=== PATIENT | female | born 1955 | race American Indian/Alaskan Native ===

== ENCOUNTER 2016-11-24 11:28 | Observation (INO) | payer OTHER ==
[2016-11-24 11:28] VITALS: BMI 23.8
--- NOTE | 2016-11-24 12:00 | C.PDOC ---
History Of Present Illness 60 year old female presents to the ED with a new onset of bilateral temporal headache that started this morning at 07:00. Patient states having occasional frontal headaches, but the current one is different than usual. Patient's headache is worse with palpation, and is associated with bilateral blurry vision , sinus congestion, rhinorrhea. Patient notes having a midsternal chest pain along with the headache this morning that has since resolved, SP cardiac cath on 2017. Patient is currently taking OTC medications for the cold symptoms for the past 10 days. She denies SOB, vision loss, vomit, chills, fever, nausea, or known sick contacts. NEW ONSET B/L TEMP STONE SINCE WAKENING THIS MORNING @ 0700. WORSE W PALPATION. PS GETS OCC STONE BUT USUALLY FRONTAL. CURRENT STONE DIFF THAN USUAL. +B/L BLURRY VISION BUT DENIES VISION LOSS. NO ASSOC FEVER. +SINUS KULWINDER, RHINORRHEA. +COLD SX X 10 DAYS TAKING OTC COLD RX. NO CP, SOB PS ALSO AWOKE W MIDSTERNAL CP THIS MORNING ASSOC W STONE. NOW RESOLVED. S/P CARDIAC CATH 2017 EXAM NAD NONTOXIC HEENT NO GROSS VISION DEF; NO SINUS TEND; +B/L TEMPORAL TEND NO SWELL, MASS. NO TMJ TEND, AROM WO DIFF. NO PHOTOPHOBIA. +NASAL KULWINDER CLEAR DC. LUNGS +BRONCHIAL SOUNDS NO W/R/R NO RETRACTION SPEAKING FULL SENTENCES NEURO INTACT REMAINDER NEG Time Seen by Provider: 11/24/16 11:45 Chief Complaint (Nursing): Cough, Cold, Congestion History Per: Patient History/Exam Limitations: no limitations Onset/Duration Of Symptoms: Sudden Onset (headache) Current Symptoms Are (Timing): Still Present Recent travel outside of the [place]: No Additional History Per: Patient Past Medical History Reviewed: Historical Data, Nursing Documentation, Vital Signs Vital Signs: Last Vital Signs Temp 98.1 F 11/25/16 07:55 Pulse 65 11/25/16 07:55 Resp 20 11/25/16 07:55 BP 139/66 11/25/16 07:55 Pulse Ox 100 11/25/16 10:06 - Medical History PMH: Arthritis, Hypercholesterolemia, Hypothyroidism, Rheumatoid Arthritis Denies: Chronic Kidney Disease Surgical History: Endoscopy - [facility] Procedures ANGIOPLASTY OF OTHER NON-CORONARY VESSEL(S) (04/29/14) ATHERECTOMY OF OTHER NON-CORONARY VESSEL(S) (04/29/14) CONTRAST ARTERIOGRAM-LEG (04/29/14) INSEJ [id number] PERIPHERAL NON-CORONARY VES STENT(S) (03/25/14) INSERTION OF TWO VASCULAR STENTS (03/25/14) PROCEDURE ON SINGLE VESSEL (04/29/14) Family History: States: Unknown Family Hx - Social History Hx Tobacco Use: Yes Hx Alcohol Use: No Hx Substance Use: No - Immunization History Hx Tetanus Toxoid Vaccination: No Hx Influenza Vaccination: Yes Hx Pneumococcal Vaccination: Yes Review Of Systems Constitutional: Negative for: Fever, Chills Eyes: Positive for: Other (bilateral blurry vision) Cardiovascular: Negative for: Chest Pain Respiratory: Negative for: Shortness of Breath Gastrointestinal: Negative for: Nausea, Vomiting Neurological: Positive for: Headache. Negative for: Weakness, Numbness Physical Exam - Physical Exam Appears: Non-toxic, No Acute Distress Skin: Normal Color, Warm, Dry Head: Normacephalic, Tenderness (Bilateral temporal tenderness, No mass), No Swelling, Other (No TMJ tenderness, Active range of motion without difficulty) Eye(s): bilateral: Normal Inspection, PERRL, EOMI, Other (No gross vision deficit, No photophobia) Nose: Discharge (clear), No Tenderness, Other (Congestion, No sinus tenderness) Oral Mucosa: Moist Teeth: Normal Dentition Gingiva: No Other (No TMJ tenderness) Throat: Normal, No Erythema, No Exudate Neck: Normal, Supple Cardiovascular: Rhythm Regular Respiratory: No Rales, No Rhonchi, No Wheezing, Other (Bronchial sounds, No retractions, Speaking in full sentences) Back: Normal Inspection Extremity: Normal ROM, No Pedal Edema, Capillary Refill (less than 2 seconds), No Deformity Neurological/Psych: Oriented x3, Normal Speech, Normal Cognition, Normal Motor, Normal Sensation Gait: Steady ED Course And Treatment - Laboratory Results Result Diagrams: 11/25/16 08:22 11/25/16 08:22 ECG: Interpreted By Me ECG Rhythm: Sinus Rhythm ECG Interpretation: Normal Rate From EC O2 Sat by Pulse Oximetry: 100 (On RA) Pulse Ox Interpretation: Normal - Radiology CXR: Interpreted by Me, Viewed By Me CXR Interpretation: Yes: No Acute Disease Nexus Criteria: Negative - CT Scan/US Head CT scan Other Rad Studies (CT/US): Interpreted By Me, Read By Radiologist, Radiology Report Reviewed CT/US Interpretation: PROCEDURE: CT HEAD WITHOUT CONTRAST. HISTORY: Headache. COMPARISON: None available. TECHNIQUE: Axial computed tomography images were obtained through the head/brain without intravenous contrast. Radiation dose: Total exam DLP = 831.14 mGy-cm. This CT exam was performed using one or more of the following dose reduction techniques: Automated exposure control, adjustment of the mA and/or kV according to patient size, and/ or use of iterative reconstruction technique. FINDINGS: HEMORRHAGE: No intracranial hemorrhage. BRAIN: No mass effect or edema. No atrophy or chronic microvascular ischemic changes. VENTRICLES: Unremarkable. No hydrocephalus. CALVARIUM: Unremarkable. PARANASAL SINUSES: Unremarkable as visualized. No significant inflammatory changes. MASTOID AIR CELLS: Unremarkable as visualized. No inflammatory changes. OTHER FINDINGS: None. IMPRESSION: No evidence of acute intracranial hemorrhage intracranial collection mass effect or midline shift Progress - Re-Evaluation Re-evaluation Note: 11/24/16 13:11 RESIDUAL STONE BUT IMPROVED FROM PRIOR. VSS NEURO INTACT. NO RECUR CP SINCE PRIOR EVAL - Data Reviewed Data Reviewed: Lab, Diagnostic imaging, EKG, Old records - Continuity of Care Discussed patient case with:: PMD Medical Decision Making Medical Decision Making: Impression : 60 y/p female with sudden onset of STONE since 04:00 this am. Plan: * CT head w/o contrast ordered * CXR ordered * EKG ordered * Blood work ordered * Reglan 10 mg IVP, Toradol 15 mg IVP, Tylenol 650 mg PO administere Disposition Counseled Patient/Family Regarding: Studies Performed, Diagnosis - Disposition Disposition: HOSPITALIZED Disposition Time: 13:15 Condition: STABLE - POA Present On Arrival: Poor Glycemic Control - Clinical Impression Clinical Impression: Chest pain, Headache, Bronchitis - Scribe Statement The provider has reviewed the documentation as recorded by the Scribe Filemon Jorge All medical record entries made by the Scribe were at my direction and personally dictated by me. I have reviewed the chart and agree that the record accurately reflects my personal performance of the history, physical exam, medical decision making, and the department course for this patient. I have also personally directed, reviewed, and agree with the discharge instructions and disposition. Decision To Admit - Pt Status Changed To: Hospital Disposition Of: Observation - . Bed Request Type: Telemetry Admitting Physician: Liz Sher Patient Diagnosis: Chest pain, Headache, Bronchitis
[2016-11-24 12:17] LABS: BASO # 0.1 K/uL (0.0-0.2); BASO % 1.1 % (0.0-2.0); EOS # 0.1 K/uL (0.0-0.7); EOS % 0.6 % (0.0-4.0); HEMATOCRIT 44.1 % (34.0-47.0); LYMPH # 3.2 K/uL (1.0-4.3); LYMPH % 32.7 % (20.0-40.0); MEAN CELL VOLUME 91.3 fL (81.0-99.0); MEAN CORPUSCULAR HEMOGLOBIN 30.7 pg (27.0-31.0); MEAN CORPUSCULAR HGB CONC 33.6 g/dL (33.0-37.0); MEAN PLATELET VOLUME 8.7 fL (7.2-11.7); MONO # 0.7 K/uL (0.0-0.8); MONO % 7.4 % (0.0-10.0); RED CELL DISTRIBUTION WIDTH 15.1 % (11.5-14.5); WHITE BLOOD COUNT 9.8 K/uL (4.8-10.8)
[2016-11-24 12:27] LABS: CHLORIDE 102 mmol/L (98-107); SODIUM 138 mmol/L (132-148)
[2016-11-24 12:30] LABS: GFR AFRICAN-AMERICAN > 60
[2016-11-24 12:31] LABS: BLOOD UREA NITROGEN 13 mg/dL (7-17); CALCIUM 9.9 mg/dl (8.6-10.4); CARBON DIOXIDE 27 mmol/L (22-30); GLUCOSE,RANDOM 121 mg/dL (65-105)
--- NOTE | 2016-11-24 13:00 | CT ---
PROCEDURE: CT HEAD WITHOUT CONTRAST. HISTORY: Headache COMPARISON: None available. TECHNIQUE: Axial computed tomography images were obtained through the head/brain without intravenous contrast. Radiation dose: Total exam DLP = 831.14 mGy-cm. This CT exam was performed using one or more of the following dose reduction techniques: Automated exposure control, adjustment of the mA and/or kV according to patient size, and/or use of iterative reconstruction technique. FINDINGS: HEMORRHAGE: No intracranial hemorrhage. BRAIN: No mass effect or edema. No atrophy or chronic microvascular ischemic changes. VENTRICLES: Unremarkable. No hydrocephalus. CALVARIUM: Unremarkable. PARANASAL SINUSES: Unremarkable as visualized. No significant inflammatory changes. MASTOID AIR CELLS: Unremarkable as visualized. No inflammatory changes. OTHER FINDINGS: None. IMPRESSION: No evidence of acute intracranial hemorrhage intracranial collection mass effect or midline shift.
[2016-11-24 13:58] LABS: ALKALINE PHOSPHATASE 122 U/L (38-126); ALT/SGPT 23 U/L (9-52); AST/SGOT 31 U/L (14-36); BILIRUBIN,DIRECT 0.4 mg/dL (0.0-0.4); BILIRUBIN,TOTAL 0.5 mg/dL (0.2-1.3); TOTAL PROTEIN 8.9 g/dL (6.3-8.3)
--- NOTE | 2016-11-24 14:11 | CP.PCM.HP ---
<Zafar Nevarez - Last Filed: 11/24/16 18:13> History of Present Illness - History of Present Illness History of Present Illness: Patient is a 60 year old female with PMHx of rheumatoid arthritis, hypercholesterolemia, hypothyroidism, who presents to [facility] for headache and chest pain. Patient states the headache began at 7 AM when she woke up. She describes the pain as bilateral temporal pain that does not radiate. She states she has had the pain intermittently for the past week. She admits she has recently had new dentures made, and has noticed the pain since then. She denies pain with chewing. She describes a few minutes after she woke up this morning and sat upright she began to experience a dull, aching pain in her midsternal chest. She reports the pain lasted for thirty minutes, went away , and then came back again. She denies radiation. She denies the chest pain being associated with dyspnea, diaphoresis, nausea, or exertion. The pain is not affected by respiration or position, but admits pain on direct pressure to chest wall. She rates the pain as 8/10 on the severity scale at worst, but the pain has resolved now. Patient admits recent cold symptoms of productive cough with clear phlegm, sinus congestion, and rhinorrhea for the past week. She denies recent strenuous activity. She denies palpitations, shortness of breath, dizziness, abdominal pain, nausea, vomiting, diaphoresis, fever, fatigue, or chills. She denies sick contacts or recent travels. PMHx: Type two diabetes mellitus, Hypercholesterolemia, Rheumatoid Arthritis, hypothyroidism PSHx: SFA artherectomy (04/27) Vascular stents in right leg (03/28), stents in left leg (02/25), Thyroid lobectomy 02/2004, Fam Hx: Father - [place], Triple vessel disease; Mother - Type two diabetes, Cervical Cancer SHx: Tobacco ~1/2 ppd currently; 1.5 packs x 20 years; Living: Social EtOH, Lives in [place]; Disabled - post-office, home health aide Present on Admission - Present on Admission Any Indicators Present on Admission: No Review of Systems - Constitutional Constitutional: absent: Chills, Fever - EENT Eyes: absent: Blurred Vision - Cardiovascular Cardiovascular: Chest Pain. absent: Dyspnea, Pedal Edema - Respiratory Respiratory: Cough (clear phlegm) - Gastrointestinal Gastrointestinal: absent: Abdominal Pain, Bloating, Nausea, Vomiting - Genitourinary Genitourinary: absent: Difficulty Urinating - Musculoskeletal Musculoskeletal: absent: Back Pain, Numbness, Tingling - Integumentary Integumentary: absent: Dry Skin, Wounds - Neurological Neurological: absent: Tingling, Weakness - Psychiatric Psychiatric: absent: Anxiety, Depression - Endocrine Endocrine: absent: Fatigue, Palpitations Past Patient History - Infectious Disease Hx of Infectious Diseases: None - Past Medical History & Family History Past Medical History?: Yes - Past Social History Smoking Status: Light Smoker < 10 Cigarettes Daily - CARDIAC Hx Hypercholesterolemia: Yes - PULMONARY Hx Respiratory Disorders: No - NEUROLOGICAL Hx Neurological Disorder: No - HEENT Hx HEENT Problems: Yes (wears glasses) - RENAL Hx Chronic Kidney Disease: No - ENDOCRINE/METABOLIC Hx Hypothyroidism: Yes - HEMATOLOGICAL/ONCOLOGICAL Hx Blood Disorders: No - INTEGUMENTARY Hx Dermatological Problems: No - MUSCULOSKELETAL/RHEUMATOLOGICAL Hx Arthritis: Yes Hx Rheumatoid Arthritis: Yes - GASTROINTESTINAL Hx Gastrointestinal Disorders: No - GENITOURINARY/GYNECOLOGICAL Hx Genitourinary Disorders: No - PSYCHIATRIC Hx Substance Use: No - SURGICAL HISTORY Hx Surgeries: Yes Hx Angiogram: Yes Hx Orthopedic Surgery: Yes (BILAT BUNIONECTOMY) Other/Comment: thyroid sx,. stents to rt leg - ANESTHESIA Hx Anesthesia: Yes Hx Anesthesia Reactions: No Hx Malignant Hyperthermia: No Meds Allergies/Adverse Reactions: Allergies Allergy/AdvReac Type Severity Reaction Status Date / Time No Known Allergies Allergy Verified 11/24/16 11:34 Physical Exam - Constitutional Appears: Non-toxic, No Acute Distress - Head Exam Head Exam: ATRAUMATIC, NORMOCEPHALIC - Eye Exam Eye Exam: EOMI. absent: Scleral icterus - ENT Exam ENT Exam: Mucous Membranes Moist Additional comments: Positive pressure in sinuses with palpation - Respiratory Exam Respiratory Exam: Clear to Auscultation Bilateral, NORMAL BREATHING PATTERN. absent: Rales, Rhonchi, Wheezes - Cardiovascular Exam Cardiovascular Exam: REGULAR RHYTHM, +S1, +S2 - GI/Abdominal Exam GI & Abdominal Exam: Normal Bowel Sounds, Soft. absent: Tenderness - Extremities Exam Extremities exam: Positive for: normal inspection. Negative for: pedal edema, tenderness - Back Exam Back exam: absent: CVA tenderness (L), CVA tenderness (R) - Neurological Exam Neurological exam: Alert, CN II-XII Intact, Oriented x3 - Psychiatric Exam Psychiatric exam: Normal Affect - Skin Skin Exam: Dry, Normal Color, Warm Results - Vital Signs Recent Vital Signs: Last Vital Signs Temp 97.9 F 11/24/16 13:20 Pulse 57 L 11/24/16 13:20 Resp 20 11/24/16 13:20 BP 173/78 H 11/24/16 13:20 Pulse Ox 100 11/24/16 13:32 - Labs Result Diagrams: 11/24/16 12:10 11/24/16 12:10 Labs: Laboratory Results - last 24 hr 11/24/16 11/24/16 11/24/16 11:50 12:10 12:10 WBC 9.8 RBC 4.83 Hgb 14.8 Hct 44.1 MCV 91.3 MCH 30.7 MCHC 33.6 RDW 15.1 H Plt Count 339 MPV 8.7 Neut % (Auto) 58.2 Lymph % (Auto) 32.7 [place] % (Auto) 7.4 Eos % (Auto) 0.6 Baso % (Auto) 1.1 Neut # 5.7 Lymph # 3.2 [place] # 0.7 Eos # 0.1 Baso # 0.1 Sodium 138 Potassium 4.0 Chloride 102 Carbon Dioxide 27 Anion Gap 13 BUN 13 Creatinine 0.8 Est GFR ( Amer) > 60 Est GFR (Non-Af Amer) > 60 POC Glucose (mg/dL) 160 H Random Glucose 121 H Calcium 9.9 Total Bilirubin 0.5 Direct Bilirubin 0.4 AST 31 ALT 23 Alkaline Phosphatase 122 Troponin I < 0.0120 Total Protein 8.9 H Albumin 4.5 Globulin 4.5 H Albumin/Globulin Ratio 1.0 Influenza Typ A,B (EIA) Grp A Beta Strep Ag 11/24/16 11/24/16 13:17 13:54 WBC RBC Hgb Hct MCV MCH MCHC RDW Plt Count MPV Neut % (Auto) Lymph % (Auto) [place] % (Auto) Eos % (Auto) Baso % (Auto) Neut # Lymph # [place] # Eos # Baso # Sodium Potassium Chloride Carbon Dioxide Anion Gap BUN Creatinine Est GFR ( Amer) Est GFR (Non-Af Amer) POC Glucose (mg/dL) Random Glucose Calcium Total Bilirubin Direct Bilirubin AST ALT Alkaline Phosphatase Troponin I Total Protein Albumin Globulin Albumin/Globulin Ratio Influenza Typ A,B (EIA) Negative for flu a/b Grp A Beta Strep Ag Negative Assessment & Plan - Assessment and Plan (Free Text) Plan: Chest pain - R/O ACS Admit to tele/obs EKG: NSR, no acute ST-T wave changes MIGUEL panel x 3: negative x 1, f/u 2 additional BNP: 13.2 D-dimer: <200 Cardio consult: Dr. Johnson - f/u reccs - f/u ECHO Headache Bilateral pressure CT Head (11/24/16): No evidence of intracranial hemorrhage, mass effect, or midline shift. Tylenol 650mg PO Q6H PRN Bronchitis USP smoking history - productive clear phlegm CXR (11/24/16): No evidence of pulm disease or interval change f/u Mycoplasma, Strep, Legionella Flonase Daily Promethazine with codeine 5ml PO Q4H PRN cough Mucinex 600mg PO BID Azithromycin 500mg IV Daily (day one) HTN Elevated pressures on admission Pt admits poor compliance Losartan 25mg PO Q24H Chlorthalidone 25mg PO Daily Type Two DM Recent A1C 6.8 f/u A1c Pt refusing medication as outpatient SINDY PVD Hx of multiple revascularizations with Dr. Johnson Plavix 75mg PO Daily Prophylaxis SCDs Heparin 5000u Q8H Protonix 40mg PO Daily Zafar Nevarez PGY-2 <Liz Sher V - Last Filed: 11/24/16 21:56> Results - Vital Signs Recent Vital Signs: Last Vital Signs Temp 98.2 F 11/24/16 17:23 Pulse 61 11/24/16 17:52 Resp 20 11/24/16 17:23 BP 173/83 H 11/24/16 17:23 Pulse Ox 98 11/24/16 17:23 - Labs Result Diagrams: 11/24/16 12:10 11/24/16 12:10 Labs: Laboratory Results - last 24 hr 11/24/16 11/24/16 11/24/16 11:50 12:10 12:10 WBC 9.8 RBC 4.83 Hgb 14.8 Hct 44.1 MCV 91.3 MCH 30.7 MCHC 33.6 RDW 15.1 H Plt Count 339 MPV 8.7 Neut % (Auto) 58.2 Lymph % (Auto) 32.7 [place] % (Auto) 7.4 Eos % (Auto) 0.6 Baso % (Auto) 1.1 Neut # 5.7 Lymph # 3.2 [place] # 0.7 Eos # 0.1 Baso # 0.1 D-Dimer, Quantitative Sodium 138 Potassium 4.0 Chloride 102 Carbon Dioxide 27 Anion Gap 13 BUN 13 Creatinine 0.8 Est GFR ( Amer) > 60 Est GFR (Non-Af Amer) > 60 POC Glucose (mg/dL) 160 H Random Glucose 121 H Calcium 9.9 Total Bilirubin 0.5 Direct Bilirubin 0.4 AST 31 ALT 23 Alkaline Phosphatase 122 Total Creatine Kinase CK-MB (Mass) Troponin I < 0.0120 Troponin I, Quant NT-Pro-B Natriuret Pep 13.2 Total Protein 8.9 H Albumin 4.5 Globulin 4.5 H Albumin/Globulin Ratio 1.0 Influenza Typ A,B (EIA) Grp A Beta Strep Ag 11/24/16 11/24/16 11/24/16 13:17 13:54 14:06 WBC RBC Hgb Hct MCV MCH MCHC RDW Plt Count MPV Neut % (Auto) Lymph % (Auto) [place] % (Auto) Eos % (Auto) Baso % (Auto) Neut # Lymph # [place] # Eos # Baso # D-Dimer, Quantitative < 200 Sodium Potassium Chloride Carbon Dioxide Anion Gap BUN Creatinine Est GFR ( Amer) Est GFR (Non-Af Amer) POC Glucose (mg/dL) Random Glucose Calcium Total Bilirubin Direct Bilirubin AST ALT Alkaline Phosphatase Total Creatine Kinase CK-MB (Mass) Troponin I Troponin I, Quant NT-Pro-B Natriuret Pep Total Protein Albumin Globulin Albumin/Globulin Ratio Influenza Typ A,B (EIA) Negative for flu a/b Grp A Beta Strep Ag Negative 11/24/16 11/24/16 16:34 20:04 WBC RBC Hgb Hct MCV MCH MCHC RDW Plt Count MPV Neut % (Auto) Lymph % (Auto) [place] % (Auto) Eos % (Auto) Baso % (Auto) Neut # Lymph # [place] # Eos # Baso # D-Dimer, Quantitative Sodium Potassium Chloride Carbon Dioxide Anion Gap BUN Creatinine Est GFR ( Amer) Est GFR (Non-Af Amer) POC Glucose (mg/dL) 124 H Random Glucose Calcium Total Bilirubin Direct Bilirubin AST ALT Alkaline Phosphatase Total Creatine Kinase 179 H CK-MB (Mass) 0.68 Troponin I Troponin I, Quant < 0.0120 NT-Pro-B Natriuret Pep Total Protein Albumin Globulin Albumin/Globulin Ratio Influenza Typ A,B (EIA) Grp A Beta Strep Ag Attending/Attestation - Attestation I have personally seen and examined this patient.: Yes I have fully participated in the care of the patient.: Yes I have reviewed all pertinent clinical information: Yes
--- NOTE | 2016-11-24 14:49 | RAD ---
HISTORY: CP COMPARISON: Comparison is made to 03/14/2016 TECHNIQUE: Chest PA and lateral FINDINGS: LUNGS: No evidence of new infiltrate or consolidation in the lungs. PLEURA: No significant pleural effusion identified. No pneumothorax apparent. CARDIOVASCULAR: Normal. OSSEOUS STRUCTURES: No significant abnormalities. VISUALIZED UPPER ABDOMEN: Normal. OTHER FINDINGS: None. IMPRESSION: No evidence of a pulmonary disease or significant interval change.
[2016-11-24] MEDS: (Novolin R) Insulin Human Regular 100 units/ml vial SC SCH ×2 (16:35→21:36)
[2016-11-24 17:24] VITALS: RESP 20
[2016-11-24] MEDS ORDERED: Promethazine/Cod 6.25mg-10mg/5ml Syr UD PO PRN (18:21)
[2016-11-24] MEDS: guaiFENesin 600 mg ER Tab PO SCH (21:36)
--- NOTE | 2016-11-25 06:53 | CP.PCM.PN ---
Subjective - Date & Time of Evaluation Date of Evaluation: 11/25/16 Time of Evaluation: 06:51 - Subjective Subjective: PGY-[address] Sher's Service: Pt seen and examined at bedside. Nursing reports no acute events overnight. Patient found eating in bed in no acute distress. Patient admits only taking her thyroid, cholesterol, and blood pressure medication "a few times a week." Patient admits being told "she has elevated blood sugar" in the past. Patient was informed lab work shows pt has diabetes. With attending, patient was given education regarding effects of penitentiary diabetes can have on body. Patient also educated on importance of taking thyroid medication daily, and about quitting smoking. Patient was receptive and states "she will take her medications daily now." Pt denies reoccurrence of chest pain or headache since admission. Objective - Vital Signs/Intake and Output Vital Signs (last 24 hours): Temp Pulse Resp BP Pulse Ox 98.5 F 62 20 142/62 96 11/25/16 04:08 11/25/16 04:08 11/25/16 04:08 11/25/16 04:08 11/25/16 04:08 - Medications Medications: Current Medications Acetaminophen (Tylenol 325mg Tab) 650 mg PO Q6 PRN PRN Reason: Headache Chlorthalidone (Hygroton) 25 mg PO DAILY [facility] Clopidogrel Bisulfate (Plavix) 75 mg PO DAILY [facility] Fluticasone Propionate (Flonase) 1 spr FRANK BID [facility] Guaifenesin (Mucinex [place]) 600 mg PO BID [facility] Last Admin: 11/24/16 21:36 Dose: 600 mg Heparin Sodium (Porcine) (Heparin) 5,000 units SC Q12 [facility] Last Admin: 11/24/16 21:35 Dose: 5,000 units Hydralazine HCl (Apresoline) 10 mg IVP Q6H PRN PRN Reason: Systolic Blood Pressure >160 Azithromycin 500 mg/ Sodium (Chloride) 250 mls @ 250 mls/hr IVPB DAILY [facility] Insulin Human Regular (Novolin R) 0 unit SC ACHS [facility] PRN Reason: Protocol Last Admin: 11/24/16 21:36 Dose: Not Given Levothyroxine Sodium (Synthroid) 125 mcg PO DAILY [facility] Losartan Potassium (Cozaar) 25 mg PO Q24H [facility] Last Admin: 11/24/16 21:00 Dose: 25 mg Promethazine HCl/Codeine (Phenergan/Codeine Oral Syrup) 5 ml PO Q4 PRN PRN Reason: Cough Rosuvastatin Calcium (Crestor) 10 mg PO HS [facility] Last Admin: 11/24/16 21:35 Dose: 10 mg Saccharomyces Boulardii (Florastor) 250 mg PO BID ZOLTAN - Labs Labs: 11/24/16 12:10 11/24/16 12:10 - Constitutional Appears: Non-toxic, No Acute Distress - Head Exam Head Exam: ATRAUMATIC, NORMOCEPHALIC - Eye Exam Eye Exam: EOMI. absent: Scleral icterus - ENT Exam ENT Exam: Mucous Membranes Moist - Neck Exam Neck Exam: Full ROM - Respiratory Exam Respiratory Exam: Clear to Ausculation Bilateral, NORMAL BREATHING PATTERN. absent: Rales, Rhonchi, Wheezes - Cardiovascular Exam Cardiovascular Exam: REGULAR RHYTHM, +S1, +S2 - GI/Abdominal Exam GI & Abdominal Exam: Soft, Normal Bowel Sounds. absent: Tenderness - Extremities Exam Extremities Exam: Normal Inspection. absent: Pedal Edema, Tenderness - Neurological Exam Neurological Exam: Alert, Awake, Oriented x3 - Psychiatric Exam Psychiatric exam: Normal Affect - Skin Skin Exam: Normal Color, Warm - Additional Findings Additional findings: - Constitutional Appears: Non-toxic, No Acute Distress - Head Exam Head Exam: ATRAUMATIC, NORMOCEPHALIC - Eye Exam Eye Exam: EOMI. absent: Scleral icterus - ENT Exam ENT Exam: Mucous Membranes Moist Additional comments: Positive pressure in sinuses with palpation - Respiratory Exam Respiratory Exam: Clear to Auscultation Bilateral, NORMAL BREATHING PATTERN. absent: Rales, Rhonchi, Wheezes - Cardiovascular Exam Cardiovascular Exam: REGULAR RHYTHM, +S1, +S2 - GI/Abdominal Exam GI & Abdominal Exam: Normal Bowel Sounds, Soft. absent: Tenderness - Extremities Exam Extremities exam: Positive for: normal inspection. Negative for: pedal edema, tenderness - Back Exam Back exam: absent: CVA tenderness (L), CVA tenderness (R) - Neurological Exam Neurological exam: Alert, CN II-XII Intact, Oriented x3 - Psychiatric Exam Psychiatric exam: Normal Affect - Skin Skin Exam: Dry, Normal Color, Warm Assessment and Plan - Assessment and Plan (Free Text) Plan: Chest pain - R/O ACS Admit to tele/obs EKG: NSR, no acute ST-T wave changes MIGUEL panel: negative x 3 BNP: 13.2 D-dimer: <200 Cardio consult: Dr. Johnson - no further cardiac workup - pt to follow as outpatient Headache Resolved Bilateral pressure CT Head (11/24/16): No evidence of intracranial hemorrhage, mass effect, or midline shift. Tylenol 650mg PO Q6H PRN Bronchitis residential smoking history - productive clear phlegm CXR (11/24/16): No evidence of pulm disease or interval change f/u Mycoplasma, Strep, Legionella Flonase Daily Promethazine with codeine 5ml PO Q4H PRN cough Mucinex 600mg PO BID Azithromycin 500mg IV Daily (day one) HTN Elevated pressures on admission Pt admits poor compliance Losartan 25mg PO Q24H Chlorthalidone 25mg PO Daily Type Two DM Recent A1C 6.8 f/u A1c Pt refusing medication as outpatient SINDY PVD Hx of multiple revascularizations with Dr. Johnson Plavix 75mg PO Daily Prophylaxis SCDs Heparin 5000u Q8H Protonix 40mg PO Daily Disposition: Pt for discharge. Pt given education regarding smoking cessation, medication compliance. Zafar Nevarez PGY-2
[2016-11-25 08:18] VITALS: BP 139/66; TEMP 98.1
[2016-11-25] MEDS: (Novolin R) Insulin Human Regular 100 units/ml vial SC SCH ×2 (08:30→12:43)
[2016-11-25 08:58] LABS: BASO # 0.1 K/uL (0.0-0.2); BASO % 1.1 % (0.0-2.0); EOS # 0.1 K/uL (0.0-0.7); EOS % 2.2 % (0.0-4.0); HEMATOCRIT 40.5 % (34.0-47.0); LYMPH % 49.5 % (20.0-40.0); MEAN CELL VOLUME 91.4 fL (81.0-99.0); MEAN CORPUSCULAR HEMOGLOBIN 30.2 pg (27.0-31.0); MEAN CORPUSCULAR HGB CONC 33.1 g/dL (33.0-37.0); MONO # 0.4 K/uL (0.0-0.8); MONO % 6.9 % (0.0-10.0); NRBC % 0.1 % (0.0-2.0); RED CELL DISTRIBUTION WIDTH 14.8 % (11.5-14.5)
[2016-11-25 09:13] LABS: CHLORIDE 105 mmol/L (98-107); POTASSIUM 4.2 mmol/L (3.6-5.2); SODIUM 137 mmol/L (132-148)
[2016-11-25 09:15] LABS: BILIRUBIN,TOTAL 0.4 mg/dL (0.2-1.3); CARBON DIOXIDE 23 mmol/L (22-30); CHOLESTEROL 213 mg/dL (0-199); GFR AFRICAN-AMERICAN > 60
[2016-11-25 09:16] LABS: ALKALINE PHOSPHATASE 111 U/L (38-126); ALT/SGPT 25 U/L (9-52); AST/SGOT 23 U/L (14-36); BLOOD UREA NITROGEN 17 mg/dL (7-17); CALCIUM 9.2 mg/dl (8.6-10.4); GLUCOSE,RANDOM 106 mg/dL (65-105); MAGNESIUM 1.8 mg/dL (1.6-2.3); PHOSPHOROUS 3.6 mg/dL (2.5-4.5); TOTAL PROTEIN 7.6 g/dL (6.3-8.3)
[2016-11-25] MEDS ORDERED: Saccharomyces Boulardi 250 mg Cap PO SCH (10:00)
[2016-11-25] MEDS ORDERED: Azithromycin 500 MG in Sodium Chloride 0.9% 250 ML IVPB SCH (10:00)
[2016-11-25] MEDS ORDERED: Fluticasone Nasal 50 mcg/Spray NAS SCH ×2 (10:00)
[2016-11-25] MEDS ORDERED: Levothyroxine 125 MCG TAB PO SCH (10:00)
[2016-11-25 10:06] VITALS: O2SAT 100
[2016-11-25] MEDS: guaiFENesin 600 mg ER Tab PO SCH (10:27)
--- NOTE | 2016-11-25 12:01 | CP.PCM.CON ---
History of Present Illness - History of Present Illness History of Present Illness: Patient seen/examined. Patient has a history of HTN, PAD, smoking who presents with cough, chest congestion and chest pain. Currently on antibiotics. Cardiac enzymes are negative, and EKG is without evidence of myocardial ischemia. No further cardiac workup necessary. Recommend statin therapy for hypercholesterolemia Past Patient History - Infectious Disease Hx of Infectious Diseases: None - Past Medical History & Family History Past Medical History?: Yes - Past Social History Smoking Status: Light Smoker < 10 Cigarettes Daily - CARDIAC Hx Hypercholesterolemia: Yes - PULMONARY Hx Respiratory Disorders: No - NEUROLOGICAL Hx Neurological Disorder: No - HEENT Hx HEENT Problems: Yes (wears glasses) - RENAL Hx Chronic Kidney Disease: No - ENDOCRINE/METABOLIC Hx Hypothyroidism: Yes - HEMATOLOGICAL/ONCOLOGICAL Hx Blood Disorders: No - INTEGUMENTARY Hx Dermatological Problems: No - MUSCULOSKELETAL/RHEUMATOLOGICAL Hx Arthritis: Yes Hx Rheumatoid Arthritis: Yes - GASTROINTESTINAL Hx Gastrointestinal Disorders: No - GENITOURINARY/GYNECOLOGICAL Hx Genitourinary Disorders: No - PSYCHIATRIC Hx Substance Use: No - SURGICAL HISTORY Hx Surgeries: Yes Hx Angiogram: Yes Hx Orthopedic Surgery: Yes (BILAT BUNIONECTOMY) Other/Comment: thyroid sx,. stents to rt leg - ANESTHESIA Hx Anesthesia: Yes Hx Anesthesia Reactions: No Hx Malignant Hyperthermia: No Meds Allergies/Adverse Reactions: Allergies Allergy/AdvReac Type Severity Reaction Status Date / Time No Known Allergies Allergy Verified 11/24/16 11:34 - Medications Medications: Current Medications Acetaminophen (Tylenol 325mg Tab) 650 mg PO Q6 PRN PRN Reason: Headache Chlorthalidone (Hygroton) 25 mg PO DAILY [facility] Last Admin: 11/25/16 10:26 Dose: 25 mg Clopidogrel Bisulfate (Plavix) 75 mg PO DAILY [facility] Last Admin: 11/25/16 10:27 Dose: 75 mg Fluticasone Propionate (Flonase) 1 spr FRANK BID [facility] Last Admin: 11/25/16 10:28 Dose: 1 spr Guaifenesin (Mucinex La) 600 mg PO BID [facility] Last Admin: 11/25/16 10:27 Dose: 600 mg Heparin Sodium (Porcine) (Heparin) 5,000 units SC Q12 [facility] Last Admin: 11/25/16 10:27 Dose: 5,000 units Hydralazine HCl (Apresoline) 10 mg IVP Q6H PRN PRN Reason: Systolic Blood Pressure >160 Azithromycin 500 mg/ Sodium (Chloride) 250 mls @ 250 mls/hr IVPB DAILY [facility] Last Admin: 11/25/16 10:27 Dose: 250 mls/hr Insulin Human Regular (Novolin R) 0 unit SC ACHS [facility] PRN Reason: Protocol Last Admin: 11/25/16 08:30 Dose: Not Given Levothyroxine Sodium (Synthroid) 125 mcg PO DAILY@0630 [facility] Losartan Potassium (Cozaar) 25 mg PO Q24H [facility] Last Admin: 11/24/16 21:00 Dose: 25 mg Promethazine HCl/Codeine (Phenergan/Codeine Oral Syrup) 5 ml PO Q4 PRN PRN Reason: Cough Rosuvastatin Calcium (Crestor) 10 mg PO HS [facility] Last Admin: 11/24/16 21:35 Dose: 10 mg Saccharomyces Boulardii (Florastor) 250 mg PO BID [facility] Last Admin: 11/25/16 10:27 Dose: 250 mg Results - Vital Signs Recent Vital Signs: Last Vital Signs Temp 98.1 F 11/25/16 07:55 Pulse 65 11/25/16 07:55 Resp 20 11/25/16 07:55 BP 139/66 11/25/16 07:55 Pulse Ox 100 11/25/16 10:11 - Labs Result Diagrams: 11/25/16 08:22 11/25/16 08:22 Labs: Laboratory Results - last 24 hr 11/24/16 11/24/16 11/24/16 12:10 12:10 13:17 WBC 9.8 RBC 4.83 Hgb 14.8 Hct 44.1 MCV 91.3 MCH 30.7 MCHC 33.6 RDW 15.1 H Plt Count 339 MPV 8.7 Neut % (Auto) 58.2 Lymph % (Auto) 32.7 Cochran % (Auto) 7.4 Eos % (Auto) 0.6 Baso % (Auto) 1.1 Neut # 5.7 Lymph # 3.2 Cochran # 0.7 Eos # 0.1 Baso # 0.1 D-Dimer, Quantitative Sodium 138 Potassium 4.0 Chloride 102 Carbon Dioxide 27 Anion Gap 13 BUN 13 Creatinine 0.8 Est GFR ( Amer) > 60 Est GFR (Non-Af Amer) > 60 POC Glucose (mg/dL) Random Glucose 121 H Calcium 9.9 Phosphorus Magnesium Total Bilirubin 0.5 Direct Bilirubin 0.4 AST 31 ALT 23 Alkaline Phosphatase 122 Total Creatine Kinase CK-MB (Mass) Troponin I < 0.0120 Troponin I, Quant NT-Pro-B Natriuret Pep 13.2 Total Protein 8.9 H Albumin 4.5 Globulin 4.5 H Albumin/Globulin Ratio 1.0 Triglycerides Cholesterol LDL Cholesterol Direct HDL Cholesterol Free T4 TSH 3rd Generation Influenza Typ A,B (EIA) Negative for flu a/b Grp A Beta Strep Ag 11/24/16 11/24/16 11/24/16 13:54 14:06 16:34 WBC RBC Hgb Hct MCV MCH MCHC RDW Plt Count MPV Neut % (Auto) Lymph % (Auto) Cochran % (Auto) Eos % (Auto) Baso % (Auto) Neut # Lymph # Cochran # Eos # Baso # D-Dimer, Quantitative < 200 Sodium Potassium Chloride Carbon Dioxide Anion Gap BUN Creatinine Est GFR ( Amer) Est GFR (Non-Af Amer) POC Glucose (mg/dL) 124 H Random Glucose Calcium Phosphorus Magnesium Total Bilirubin Direct Bilirubin AST ALT Alkaline Phosphatase Total Creatine Kinase CK-MB (Mass) Troponin I Troponin I, Quant NT-Pro-B Natriuret Pep Total Protein Albumin Globulin Albumin/Globulin Ratio Triglycerides Cholesterol LDL Cholesterol Direct HDL Cholesterol Free T4 TSH 3rd Generation Influenza Typ A,B (EIA) Grp A Beta Strep Ag Negative 11/24/16 11/24/16 11/25/16 20:04 21:34 00:51 WBC RBC Hgb Hct MCV MCH MCHC RDW Plt Count MPV Neut % (Auto) Lymph % (Auto) Cochran % (Auto) Eos % (Auto) Baso % (Auto) Neut # Lymph # Cochran # Eos # Baso # D-Dimer, Quantitative Sodium Potassium Chloride Carbon Dioxide Anion Gap BUN Creatinine Est GFR ( Amer) Est GFR (Non-Af Amer) POC Glucose (mg/dL) 135 H Random Glucose Calcium Phosphorus Magnesium Total Bilirubin Direct Bilirubin AST ALT Alkaline Phosphatase Total Creatine Kinase 179 H 160 H CK-MB (Mass) 0.68 0.58 Troponin I Troponin I, Quant < 0.0120 < 0.0120 NT-Pro-B Natriuret Pep Total Protein Albumin Globulin Albumin/Globulin Ratio Triglycerides Cholesterol LDL Cholesterol Direct HDL Cholesterol Free T4 TSH 3rd Generation Influenza Typ A,B (EIA) Grp A Beta Strep Ag 11/25/16 11/25/16 11/25/16 06:04 08:22 08:22 WBC 6.0 RBC 4.43 Hgb 13.4 Hct 40.5 MCV 91.4 MCH 30.2 MCHC 33.1 RDW 14.8 H Plt Count 308 MPV 9.0 Neut % (Auto) 40.3 L Lymph % (Auto) 49.5 H Cochran % (Auto) 6.9 Eos % (Auto) 2.2 Baso % (Auto) 1.1 Neut # 2.4 Lymph # 3.0 Cochran # 0.4 Eos # 0.1 Baso # 0.1 D-Dimer, Quantitative Sodium 137 Potassium 4.2 Chloride 105 Carbon Dioxide 23 Anion Gap 14 BUN 17 Creatinine 0.8 Est GFR ( Amer) > 60 Est GFR (Non-Af Amer) > 60 POC Glucose (mg/dL) 111 H Random Glucose 106 H Calcium 9.2 Phosphorus 3.6 Magnesium 1.8 Total Bilirubin 0.4 Direct Bilirubin AST 23 ALT 25 Alkaline Phosphatase 111 Total Creatine Kinase CK-MB (Mass) Troponin I Troponin I, Quant NT-Pro-B Natriuret Pep Total Protein 7.6 Albumin 3.8 Globulin 3.9 Albumin/Globulin Ratio 1.0 Triglycerides 127 D Cholesterol 213 H LDL Cholesterol Direct 160 H HDL Cholesterol 38 Free T4 TSH 3rd Generation 38.00 H Influenza Typ A,B (EIA) Grp A Beta Strep Ag 11/25/16 08:22 WBC RBC Hgb Hct MCV MCH MCHC RDW Plt Count MPV Neut % (Auto) Lymph % (Auto) Cochran % (Auto) Eos % (Auto) Baso % (Auto) Neut # Lymph # Cochran # Eos # Baso # D-Dimer, Quantitative Sodium Potassium Chloride Carbon Dioxide Anion Gap BUN Creatinine Est GFR ( Amer) Est GFR (Non-Af Amer) POC Glucose (mg/dL) Random Glucose Calcium Phosphorus Magnesium Total Bilirubin Direct Bilirubin AST ALT Alkaline Phosphatase Total Creatine Kinase CK-MB (Mass) Troponin I Troponin I, Quant NT-Pro-B Natriuret Pep Total Protein Albumin Globulin Albumin/Globulin Ratio Triglycerides Cholesterol LDL Cholesterol Direct HDL Cholesterol Free T4 0.46 L TSH 3rd Generation Influenza Typ A,B (EIA) Grp A Beta Strep Ag
[2016-11-25 12:53] VITALS: PULSE 68
--- NOTE | 2016-11-25 17:06 | CP.PCM.DIS ---
Provider - Provider Date of Admission: 11/24/16 13:16 Attending physician: Liz Sher DO Primary care physician: Мария Consults: Cardiology: Dr. Johnson Time Spent in preparation of Discharge (in minutes): 35 Diagnosis - Discharge Diagnosis (1) Bronchitis Status: Acute Comment: Flonase, Mucinex, Azithromycin for antibiotic coverage of atypicals, IV fluids (2) Chest pain Status: Acute Comment: Resolved, but pt with multiple RFs: DM, HTN, Hyperlipidemia. Dr. Johnson Cardio consulted. MIGUEL negative x 3, EKG no acute ST-T wave changes (3) PAD (peripheral artery disease) Status: Acute Comment: Chronic. Multiple stents placed in legs by Dr. Johnson Hospital Course - Lab Results Lab Results: Micro Results 11/24/16 13:54 Throat Group A Strep Throat Culture - Final NO BETA STREP GROUP A ISOLATED. Most Recent Lab Values WBC 6.0 K/uL (4.8-10.8) 11/25/16 08:22 RBC 4.43 Mil/uL (3.80-5.20) 11/25/16 08:22 Hgb 13.4 g/dL (11.0-16.0) 11/25/16 08:22 Hct 40.5 % (34.0-47.0) 11/25/16 08:22 MCV 91.4 fL (81.0-99.0) 11/25/16 08:22 MCH 30.2 pg (27.0-31.0) 11/25/16 08:22 MCHC 33.1 g/dL (33.0-37.0) 11/25/16 08:22 RDW 14.8 % (11.5-14.5) H 11/25/16 08:22 Plt Count 308 K/uL (130-400) 11/25/16 08:22 MPV 9.0 fL (7.2-11.7) 11/25/16 08:22 Neut % (Auto) 40.3 % (50.0-75.0) L 11/25/16 08:22 Lymph % (Auto) 49.5 % (20.0-40.0) H 11/25/16 08:22 [place] % (Auto) 6.9 % (0.0-10.0) 11/25/16 08:22 Eos % (Auto) 2.2 % (0.0-4.0) 11/25/16 08:22 Baso % (Auto) 1.1 % (0.0-2.0) 11/25/16 08:22 Neut # 2.4 K/uL (1.8-7.0) 11/25/16 08:22 Lymph # 3.0 K/uL (1.0-4.3) 11/25/16 08:22 [place] # 0.4 K/uL (0.0-0.8) 11/25/16 08:22 Eos # 0.1 K/uL (0.0-0.7) 11/25/16 08:22 Baso # 0.1 K/uL (0.0-0.2) 11/25/16 08:22 D-Dimer, Quantitative < 200 ng/mlDDU (0-243) 11/24/16 14:06 Sodium 137 mmol/L (132-148) 11/25/16 08:22 Potassium 4.2 mmol/L (3.6-5.2) 11/25/16 08:22 Chloride 105 mmol/L (98-107) 11/25/16 08:22 Carbon Dioxide 23 mmol/L (22-30) 11/25/16 08:22 Anion Gap 14 (10-20) 11/25/16 08:22 BUN 17 mg/dL (7-17) 11/25/16 08:22 Creatinine 0.8 mg/dL (0.7-1.2) 11/25/16 08:22 Est GFR ( Amer) > 60 11/25/16 08:22 Est GFR (Non-Af Amer) > 60 11/25/16 08:22 POC Glucose (mg/dL) 104 mg/dL (65-110) 11/25/16 11:56 Random Glucose 106 mg/dL (65-105) H 11/25/16 08:22 Calcium 9.2 mg/dl (8.6-10.4) 11/25/16 08:22 Phosphorus 3.6 mg/dL (2.5-4.5) 11/25/16 08:22 Magnesium 1.8 mg/dL (1.6-2.3) 11/25/16 08:22 Total Bilirubin 0.4 mg/dL (0.2-1.3) 11/25/16 08:22 Direct Bilirubin 0.4 mg/dL (0.0-0.4) 11/24/16 12:10 AST 23 U/L (14-36) 11/25/16 08:22 ALT 25 U/L (9-52) 11/25/16 08:22 Alkaline Phosphatase 111 U/L (38-126) 11/25/16 08:22 Total Creatine Kinase 160 U/L (30-135) H 11/25/16 00:51 CK-MB (Mass) 0.58 ng/mL (0.0-3.38) 11/25/16 00:51 Troponin I < 0.0120 ng/mL (0.00-0.120) 11/24/16 12:10 Troponin I, Quant < 0.0120 ng/mL (0.00-0.120) 11/25/16 00:51 NT-Pro-B Natriuret Pep 13.2 pg/mL (0-900) 11/24/16 12:10 Total Protein 7.6 g/dL (6.3-8.3) 11/25/16 08:22 Albumin 3.8 g/dL (3.5-5.0) 11/25/16 08:22 Globulin 3.9 gm/dL (2.2-3.9) 11/25/16 08:22 Albumin/Globulin Ratio 1.0 (1.0-2.1) 11/25/16 08:22 Triglycerides 127 mg/dL (0-149) D 11/25/16 08:22 Cholesterol 213 mg/dL (0-199) H 11/25/16 08:22 LDL Cholesterol Direct 160 mg/dL (0-129) H 11/25/16 08:22 HDL Cholesterol 38 mg/dL (30-70) 11/25/16 08:22 Free T4 0.46 ng/dL (0.78-2.19) L 11/25/16 08:22 TSH 3rd Generation 38.00 mIU/L (0.46-4.68) H 11/25/16 08:22 Influenza Typ A,B (EIA) Negative for flu a/b (NEGATIVE) 11/24/16 13:17 Grp A Beta Strep Ag Negative (NEGATIVE) 11/24/16 13:54 - Hospital Course Hospital Course: ON admission Patient is a 60 year old female with PMHx of rheumatoid arthritis, hypercholesterolemia, hypothyroidism, who presents to [facility] for headache and chest pain. Patient states the headache began at 7 AM when she woke up. She describes the pain as bilateral temporal pain that does not radiate. She states she has had the pain intermittently for the past week. She admits she has recently had new dentures made, and has noticed the pain since then. She denies pain with chewing. She describes a few minutes after she woke up this morning and sat upright she began to experience a dull, aching pain in her midsternal chest. She reports the pain lasted for thirty minutes, went away , and then came back again. She denies radiation. She denies the chest pain being associated with dyspnea, diaphoresis, nausea, or exertion. The pain is not affected by respiration or position, but admits pain on direct pressure to chest wall. She rates the pain as 8/10 on the severity scale at worst, but the pain has resolved now. Patient admits recent cold symptoms of productive cough with clear phlegm, sinus congestion, and rhinorrhea for the past week. She denies recent strenuous activity. She denies palpitations, shortness of breath, dizziness, abdominal pain, nausea, vomiting, diaphoresis, fever, fatigue, or chills. She denies sick contacts or recent travels. Hospital course: Pt admitted on 11/24 for tele/observation for chest pain. MIGUEL/EKG negative x 3. DR. Johnson, cardio consult, evaluated pt and deemed no further cardiac workup was necessary. Pt cough/congestion treated with Flonase, Promethazine with codeine and mucinex, which improved symptoms. Pt counseled on importance of quitting smoking, compliance with diabetes, hypertension, and hypothyroid medications. Labwork performed showed patient with uncontrolled hypothyroidism - pt admits not taking medications daily. She will follow up in Dr. Johnson office tomorrow, 11/26. Pt given Z-pack for antibiotic coverage. Discharge Exam - Additional Findings Additional findings: - Constitutional Appears: Non-toxic, No Acute Distress - Head Exam Head Exam: ATRAUMATIC, NORMOCEPHALIC - Eye Exam Eye Exam: EOMI. absent: Scleral icterus - ENT Exam ENT Exam: Mucous Membranes Moist - Neck Exam Neck Exam: Full ROM - Respiratory Exam Respiratory Exam: Clear to Ausculation Bilateral, NORMAL BREATHING PATTERN. absent: Rales, Rhonchi, Wheezes - Cardiovascular Exam Cardiovascular Exam: REGULAR RHYTHM, +S1, +S2 - GI/Abdominal Exam GI & Abdominal Exam: Soft, Normal Bowel Sounds. absent: Tenderness - Extremities Exam Extremities Exam: Normal Inspection. absent: Pedal Edema, Tenderness - Neurological Exam Neurological Exam: Alert, Awake, Oriented x3 - Psychiatric Exam Psychiatric exam: Normal Affect - Skin Skin Exam: Normal Color, Warm - Additional Findings Additional findings: - Constitutional Appears: Non-toxic, No Acute Distress - Head Exam Head Exam: ATRAUMATIC, NORMOCEPHALIC - Eye Exam Eye Exam: EOMI. absent: Scleral icterus - ENT Exam ENT Exam: Mucous Membranes Moist Additional comments: Positive pressure in sinuses with palpation - Respiratory Exam Respiratory Exam: Clear to Auscultation Bilateral, NORMAL BREATHING PATTERN. absent: Rales, Rhonchi, Wheezes - Cardiovascular Exam Cardiovascular Exam: REGULAR RHYTHM, +S1, +S2 - GI/Abdominal Exam GI & Abdominal Exam: Normal Bowel Sounds, Soft. absent: Tenderness - Extremities Exam Extremities exam: Positive for: normal inspection. Negative for: pedal edema, tenderness - Back Exam Back exam: absent: CVA tenderness (L), CVA tenderness (R) - Neurological Exam Neurological exam: Alert, CN II-XII Intact, Oriented x3 - Psychiatric Exam Psychiatric exam: Normal Affect - Skin Skin Exam: Dry, Normal Color, Warm Discharge Plan - Discharge Medications Prescriptions: Azithromycin [Z-Augusto] 250 mg PO DAILY #6 tab Chlorthalidone [Hygroton] 25 mg PO DAILY #30 tab Fluticasone Propionate [Flonase] 1 spr FRANK BID #1 bottle Levothyroxine [Synthroid] 125 mcg PO DAILY@0630 #30 tab Losartan [Cozaar] 25 mg PO Q24H #30 tab metFORMIN [glucOPHAGE] 500 mg PO BID #60 tab Simvastatin 20 mg PO DAILY #30 tablet - Follow Up Plan Condition: GOOD Disposition: HOME/ ROUTINE Instructions: Levothyroxine (By mouth), Azithromycin (By mouth), Chlorthalidone (By mouth), Simvastatin (By mouth), Losartan (By mouth), Metformin (By mouth), Fluticasone (Into the nose), Chest Pain (DC), Acute Bronchitis (GEN) Additional Instructions: Pt stable for discharge per Dr. Sher. Patient should follow up with her PMD in the clinic regarding her diabetes diagnosis. She should also follow up with her [employer] Clerk, Dr. Johnson, at her scheduled appointment for tomorrow, 11/26/16, at his office. Pt should return to the ED if her symptoms return or worsen. Pt was given these instructions in Japanese, and she verbalized understanding, and consented. Prescribed Medications: Metformin 500mg by mouth twice daily Levothyroxine 125mg daily Chlorthalidone 25mg Daily Losartan 25mg Daily Simvastatin 20mg Daily Azithromycin Pack Flonase Over the counter Pt advised to take over the counter fish oil to improve her good cholesterol. Referrals: Jessy Johnson MD [Staff Provider] -
[2016-11-26] MEDS ORDERED: Levothyroxine 125 MCG TAB PO SCH (06:30)
--- NOTE | 2016-11-26 12:47 | CARD ---
APPROVED REPORT EKG Measurement Heart [id number] <Conclusion> Sinus bradycardia Otherwise normal ECG
--- NOTE | 2016-11-26 12:48 | CARD ---
APPROVED REPORT EKG Measurement Heart [id number] [id number] <Conclusion> Normal sinus rhythm Biatrial enlargement Septal infarct, age undetermined Abnormal ECG
--- NOTE | 2016-11-27 19:25 | CARD ---
APPROVED REPORT EKG Measurement Heart [id number] [id number] <Conclusion> Sinus bradycardia Otherwise normal ECG
== END 2016-11-25 15:00 | disposition home or self-care (01) ==
LOC: C.ER 11:28 → C.9E 13:16 → C.6T 15:55
PROVIDERS: ADMIT Hospitalist; ATTEND Hospitalist
DX: J40 Bronchitis, not specified as acute or chronic (principal); R07.89 Other chest pain; I10 Essential (primary) hypertension; I73.9 Peripheral vascular disease, unspecified; F17.200 Nicotine dependence, unspecified, uncomplicated; E78.5 Hyperlipidemia, unspecified; E03.9 Hypothyroidism, unspecified; M06.9 Rheumatoid arthritis, unspecified; E11.9 Type 2 diabetes mellitus without complications
CPT/HCPCS: 36415; 70450; 71020; 80048; 80053; 80061; 80076; 82948; 83036; 83735; 83880; 84100; 84439; 84443; 84484; 85025; 85378; 86738; 87070; 87430; 87804; 93005; 96365; 96372; 96375; 97110; 97162; 99285; G0378; G8978; G8979; J0456; J1644; J1885; J2765; J7050

== ENCOUNTER 2017-11-11 10:20 | Inpatient (IN) | payer OTHER ==
[2017-11-11 10:27] VITALS: BMI 22.9
--- NOTE | 2017-11-11 11:19 | C.PDOC ---
History Of Present Illness 61 y/o female presents to ED with c/o dizziness described as "room spinning" since yesterday. Patient states 6 weeks ago her thyroid medication dose was lowered and she had a brief episode of dizziness then, but then it resolved. P atient admits to current generalized weakness. She denies sensory changes, focal extremity weakness, visual changes, facial droop, slurred speech, nausea/vomiting, chest pain, sob, palpitationsor any other complaints at this time. Time Seen by Provider: 11/11/17 10:38 Chief Complaint (Nursing): Dizziness/Lightheaded History Per: Patient History/Exam Limitations: no limitations Onset/Duration Of Symptoms: Days Current Symptoms Are (Timing): Worse Associated Symptoms Preceding Syncopal Episode: Vertigo, Vertigo Worse With Change In Head Position Fall Associated With With Symptoms: No Severity: Moderate Past Medical History Reviewed: Historical Data, Nursing Documentation, Vital Signs Vital Signs: Last Vital Signs Temp 98.1 F 11/11/17 10:27 Pulse 73 11/11/17 10:27 Resp 18 11/11/17 10:27 BP 167/93 H 11/11/17 10:27 Pulse Ox 98 11/11/17 10:27 - Medical History PMH: Arthritis, HTN, Hypercholesterolemia, Hypothyroidism, Pneumonia, Rheumatoid Arthritis Surgical History: Endoscopy - [facility] Procedures ANGIOPLASTY OF OTHER NON-CORONARY VESSEL(S) (04/29/14) ATHERECTOMY OF OTHER NON-CORONARY VESSEL(S) (04/29/14) CONTRAST ARTERIOGRAM-LEG (04/29/14) INSEJ [id number] PERIPHERAL NON-CORONARY VES STENT(S) (03/25/14) INSERTION OF TWO VASCULAR STENTS (03/25/14) PROCEDURE ON SINGLE VESSEL (04/29/14) Family History: States: No Known Family Hx - Social History Hx Tobacco Use: Yes Hx Alcohol Use: No Hx Substance Use: No - Immunization History Hx Tetanus Toxoid Vaccination: No Hx Influenza Vaccination: Yes Hx Pneumococcal Vaccination: Yes Review Of Systems Constitutional: Positive for: Weakness. Negative for: Fever, Chills Cardiovascular: Negative for: Chest Pain, Palpitations Gastrointestinal: Negative for: Nausea, Vomiting, Abdominal Pain Neurological: Positive for: Dizziness. Negative for: Weakness, Numbness, Change in Speech, Confusion, Seizures, Altered Mental Status, Headache Physical Exam - Physical Exam Appears: Well, Non-toxic, Other (mildly uncomfortable ) Skin: Normal Color, Warm, Dry, No Rash Head: Atraumatic, Normacephalic Eye(s): bilateral: Normal Inspection (No nystagmus), PERRL, EOMI Oral Mucosa: Moist Neck: Normal, Normal ROM, Supple Cardiovascular: Rhythm Regular Respiratory: Normal Breath Sounds, No Rales, No Rhonchi, No Wheezing Gastrointestinal/Abdominal: Normal Exam, Bowel Sounds, Soft, No Tenderness Extremity: Normal ROM, No Pedal Edema, No Calf Tenderness Neurological/Psych: Oriented x3, Normal Speech, Normal Cognition, Normal Cranial Nerves, No Cerebellar Signs, Normal Motor, Normal Sensation Gait: Unsteady ED Course And Treatment - Laboratory Results Result Diagrams: 11/13/17 08:14 11/13/17 08:14 ECG: Interpreted By Me, Viewed By Me (NSR 69 bpm, normal axis, no acute ST/T wave changes) ECG Interpretation: Normal O2 Sat by Pulse Oximetry: 98 (RA) Pulse Ox Interpretation: Normal - CT Scan/US CT HEAD Other Rad Studies (CT/US): Read By Radiologist, Radiology Report Reviewed CT/US Interpretation: Accession No. : [id number]. Patient Name / ID : ELBERT WALSH / [id number]. Exam Date : 11/11/2017 12:08:11 ( Approved ). Study Comment : Sex / Age : F / 61Y. Creator : Caleb De Jesus MD. Dictator : Caleb De Jesus MD. Retail Pricing Coordinator : Handkerchief Folder : Caleb De Jesus MD . Approver2 : Report Date : 11/11/2017 12:39:05. My Comment : . Date of service: 11/11/2017. PROCEDURE: CT HEAD WITHOUT CONTRAST. HISTORY: DIZZINESS. COMPARISON: 11/24/2016. TECHNIQUE: Axial computed tomography images were obtained through the head/brain without intravenous contrast. Radiation dose: Total exam DLP = 862 mGy-cm. This CT exam was performed using one or more of the following dose reduction techniques: Automated exposure control, adjustment of the mA and/or kV according to patient size, and/or use of iterative reconstruction technique. FINDINGS: HEMORRHAGE: No intracranial hemorrhage. BRAIN: No mass effect or edema. Scattered focal lucencies in the subcortical and periventricular white matter suggestive for chronic microvascular ischemic change. Punctate bilateral basal ganglia calcifications. New focal hypodensity measuring 4 millimeters in the right caudate head suggestive for a lacunar infarct, age indeterminate. Punctate right basal ganglia lacunar infarct. V ENTRICLES: Unremarkable. No hydrocephalus. CALVARIUM: Unremarkable. PARANASAL SINUSES: Unremarkable as visualized. No significant inflammatory changes. MASTOID AIR CELLS: Unremarkable as visualized. No inflammatory changes. OTHER FINDINGS: None. IMPRESSION: Chronic microvascular ischemic changes. Right basal ganglia lacunar infarct. New focal hypodensity measuring 4 millimeters in the right caudate head suggestive for a lacunar infarct, age indeterminate. If symptoms persists, consider correlation with MRI. Progress Note: Blood work, UA, CT head w/o contrast ordered and reviewed. Patient given PO Meclizine and Aspirin (after CT head neg for bleed). Reevaluation Time: 14:00 Reassessment Condition: Improved (Patient's dizziness mildly improved.) - Physician Consult Information Physician Contacted: Wesly Rivera Outcome Of Conversation: Discussed patient with hospitalist, agrees with tele admission for cebtral vertigo, lacunar infarcts. NIHSS Stroke Scale 2 - Date/Time Evaluation Performed Date Performed: 11/11/17 Time Performed: 10:45 When Was NIHSS Performed: Baseline - How Severe is the Stroke Level of Consciousness: 0=Alert LOC to Questions: 0=Both comments correct LOC to commands: 0=Obeys both correctly Best Gaze: 0=Normal Visual: 0=No visual loss Facial: 0=Normal Motor Arm - Left: 0=No drift Motor Arm - Right: 0=No drift Motor Leg - Left: 0=No drift Motor Leg - Right: 0=No drift Limb Ataxia: 0=Absent Sensory: 0=Normal Best Language: 0=No aphasia Dysarthia: 0=Normal articulation Extinction & Inattention (Neglect): 0=Normal, no object Score: 0 rTPA Inclusion/Exclusion - Refusal of Treatment Patient Refused Treatment: No - Inclusion Criteria for Altepase Patient is 18 years or Older: Yes The Clinical Diagnosis of Ischemic Stroke That is Causing a Potentially Disabling Neurological Deficit: No Time of Onset is Well Established to be Less Than 270 Minute Before Treatment Would Begin: No Risk/Benefit Discussed With Patient/Family Member Present: No Medical Decision Making Medical Decision Making: lacunar infarcts - acute vs chronic? patient with vertigo symptoms, possibly central vertigo due to CVA Disposition - Disposition Disposition: HOSPITALIZED Disposition Time: 14:17 Condition: STABLE - Clinical Impression Clinical Impression: Dizziness, Vertigo, Lacunar infarction - Scribe Statement The provider has reviewed the documentation as recorded by the Afsaneh Stephen All medical record entries made by the Afsaneh were at my direction and personally dictated by me. I have reviewed the chart and agree that the record accurately reflects my personal performance of the history, physical exam, medical decision making, and the department course for this patient. I have also personally directed, reviewed, and agree with the discharge instructions and di sposition.
[2017-11-11 12:21] LABS: BASO # 0.1 K/uL (0.0-0.2); BASO % 1.5 % (0.0-2.0); EOS % 0.1 % (0.0-4.0); HEMOGLOBIN 14.3 g/dL (11.0-16.0); LYMPH # 2.5 K/uL (1.0-4.3); LYMPH % 27.2 % (20.0-40.0); MEAN CELL VOLUME 91.5 fL (81.0-99.0); MEAN CORPUSCULAR HEMOGLOBIN 30.8 pg (27.0-31.0); MEAN CORPUSCULAR HGB CONC 33.7 g/dL (33.0-37.0); MEAN PLATELET VOLUME 9.2 fL (7.2-11.7); MONO # 0.3 K/uL (0.0-0.8); MONO % 3.7 % (0.0-10.0); NEUT # 6.3 K/uL (1.8-7.0); NEUT % 67.5 % (50.0-75.0); RBC 4.65 Mil/uL (3.80-5.20); RED CELL DISTRIBUTION WIDTH 15.2 % (11.5-14.5); WHITE BLOOD COUNT 9.3 K/uL (4.8-10.8)
[2017-11-11 12:29] LABS: SQUAMOUS EPITHIAL 1 /hpf (0-5); URINE BACTERIA RARE (<OCC); URINE BILIRUBIN NEGATIVE (NEGATIVE); URINE CLARITY Clear (Clear); URINE COLOR Straw (YELLOW); URINE GLUCOSE (UA) 2+ mg/dL (Normal); URINE LEUKOCYTE ESTERASE NEG Leu/uL (Negative); URINE PROTEIN NEGATIVE (NEGATIVE); URINE UROBILINOGEN NORMAL mg/dL (0.2-1.0)
[2017-11-11 12:34] LABS: ALB/GLOB RATIO 1.3 (1.0-2.1); ALBUMIN 4.5 g/dL (3.5-5.0); ALT/SGPT 48 U/L (9-52); AST/SGOT 33 U/L (14-36); BLOOD UREA NITROGEN 11 mg/dL (7-17); CALCIUM 10.5 mg/dl (8.6-10.4); GFR NON-AFRICAN AMERICAN > 60
--- NOTE | 2017-11-11 12:40 | CT ---
Date of service: 11/11/2017 PROCEDURE: CT HEAD WITHOUT CONTRAST. HISTORY: DIZZINESS COMPARISON: 11/24/2016 TECHNIQUE: Axial computed tomography images were obtained through the head/brain without intravenous contrast. Radiation dose: Total exam DLP = 862 mGy-cm. This CT exam was performed using one or more of the following dose reduction techniques: Automated exposure control, adjustment of the mA and/or kV according to patient size, and/or use of iterative reconstruction technique. FINDINGS: HEMORRHAGE: No intracranial hemorrhage. BRAIN: No mass effect or edema. Scattered focal lucencies in the subcortical and periventricular white matter suggestive for chronic microvascular ischemic change. Punctate bilateral basal ganglia calcifications. New focal hypodensity measuring 4 millimeters in the right caudate head suggestive for a lacunar infarct, age indeterminate. Punctate right basal ganglia lacunar infarct. VENTRICLES: Unremarkable. No hydrocephalus. CALVARIUM: Unremarkable. PARANASAL SINUSES: Unremarkable as visualized. No significant inflammatory changes. MASTOID AIR CELLS: Unremarkable as visualized. No inflammatory changes. OTHER FINDINGS: None. IMPRESSION: Chronic microvascular ischemic changes. Right basal ganglia lacunar infarct. New focal hypodensity measuring 4 millimeters in the right caudate head suggestive for a lacunar infarct, age indeterminate. If symptoms persists, consider correlation with MRI.
[2017-11-11 12:45] LABS: URINE BLOOD TRACE-INTACT (NEGATIVE)
[2017-11-11 12:46] LABS: CK-MB 0.49 ng/mL (0.0-3.38)
[2017-11-11 15:48] LABS: BARBITURATES, UR NEGATIVE (NEGATIVE); BENZODIAZEPINES, UR NEGATIVE (NEGATIVE); OPIATES, UR NEGATIVE (NEGATIVE); PHENCYCLIDINE, UR NEGATIVE (NEGATIVE)
[2017-11-11] MEDS ORDERED: Glucagon Recombinant 1 mg Inj IM PRN (16:04)
[2017-11-11] MEDS ORDERED: Dextrose 50% SYRINGE Inj (50 ml) IV PRN (16:04)
--- NOTE | 2017-11-11 16:24 | CP.PCM.HP ---
<Jason Casanova - Last Filed: 11/11/17 18:06> History of Present Illness - History of Present Illness History of Present Illness: Jason Casanova PGY-1, H&P for Hospitalist (Dr. Rivera) CC: dizziness Medical record and pt chart was reviewed prior to evaluation of the pt. This is a 61 year old female with PMH of questionable TIA in the past, PAD with stents, HTN, HLD, DM2, Hypothyroidism, RA who presents to the ED with a 2 day history of dizziness, described as a constant feeling of the room spinning with blurry vision and nausea. Pt denies any alleviating or exacerbating factors, and states that she woke up yesterday morning (11/10) feeling this way. Pt has not taken anything for the dizziness. Pt is also complaining of a 2 day history of fatigue. There is no history of similar symptoms. Pt denies fever, chills, headache, LOC, fall, chest pain, palpitations, SOB, abdominal pain, v/d, hematochezia, melena, dysuria, cough, sore throat, recent travel, leg pain or swelling. A 12-point ROS as reviewed and is otherwise unremarkable. In the ED, pt's Head CT w/o contrast showed right basal ganglia lacunar infarct. New hypodensity 4 mm in the right caudate head suggestive for lacunar infarct, age indeterminate. (see full report). She received ASA 325 mg PO. PMD: Dr. Hsieh ( clinic) Cardiology: Dr. Jennie Johnson PMH: questionable TIA in the past as per pt, PAD with stents, HTN, HLD, DM2, Hypothyroidism, RA PSH: SFA athrectomy 04/2016, vascular stents in right leg 03/2014, vascular stent in left leg 02/2014, thyroid lobectomy 02/2004 Meds: see MAR; levothyroxine 88 mcg PO daily (changed form 125 mcg 6 weeks ago) Allx: NKDA FHx: Father had an LA at the age of 65 (triple vessel disease), mother iwth DM2, from cervical cancer. No history of other cancers in the family. Social Hx: smokes 1/2 PPD currently, 60+ pack year history. etoh socially, denies illicit drug use. Lives with in . Currently on disability, worked as a home health aide for 25 years. Present on Admission - Present on Admission Any Indicators Present on Admission: No Review of Systems - Review of Systems All systems: reviewed and no additional remarkable complaints except (as per HPI) Past Patient History - Infectious Disease Hx of Infectious Diseases: None - Past Medical History & Family History Past Medical History?: Yes - Past Social History Smoking Status: Light Smoker < 10 Cigarettes Daily - CARDIAC Hx Hypercholesterolemia: Yes Hx Hypertension: Yes - PULMONARY Hx Pneumonia: Yes - NEUROLOGICAL Hx Neurological Disorder: No - HEENT Hx HEENT Problems: Yes (wears glasses) - RENAL Hx Chronic Kidney Disease: No - ENDOCRINE/METABOLIC Hx Hypothyroidism: Yes - HEMATOLOGICAL/ONCOLOGICAL Hx Blood Disorders: No - INTEGUMENTARY Hx Dermatological Problems: No - MUSCULOSKELETAL/RHEUMATOLOGICAL Hx Arthritis: Yes Hx Rheumatoid Arthritis: Yes - GASTROINTESTINAL Hx Gastrointestinal Disorders: No - GENITOURINARY/GYNECOLOGICAL Hx Genitourinary Disorders: No - PSYCHIATRIC Hx Substance Use: No - SURGICAL HISTORY Hx Surgeries: Yes Hx Angiogram: Yes Hx Orthopedic Surgery: Yes (BILAT BUNIONECTOMY) Other/Comment: thyroid sx,. stents to rt leg - ANESTHESIA Hx Anesthesia: Yes Hx Anesthesia Reactions: No Hx Malignant Hyperthermia: No Meds Allergies/Adverse Reactions: Allergies Allergy/AdvReac Type Severity Reaction Status Date / Time No Known Allergies Allergy Verified 11/11/17 10:26 Physical Exam - Constitutional Appears: Non-toxic, No Acute Distress - Head Exam Head Exam: NORMAL INSPECTION - Eye Exam Eye Exam: EOMI, Normal appearance, PERRL. absent: Nystagmus - ENT Exam ENT Exam: Mucous Membranes Moist - Neck Exam Neck exam: Positive for: Normal Inspection - Respiratory Exam Respiratory Exam: Clear to Auscultation Bilateral, Rhonchi (at the bases), NORMAL BREATHING PATTERN. absent: Wheezes, Respiratory Distress - Cardiovascular Exam Cardiovascular Exam: REGULAR RHYTHM, +S1, +S2. absent: Systolic Murmur Additional comments: (-) carotid bruit bilaterally - GI/Abdominal Exam GI & Abdominal Exam: Normal Bowel Sounds, Soft. absent: Distended, Firm, Guarding, Rebound, Rigid, Tenderness - Extremities Exam Extremities exam: Positive for: normal inspection, pedal pulses present. Negative for: calf tenderness, pedal edema, tenderness - Back Exam Back exam: NORMAL INSPECTION - Neurological Exam Neurological exam: Alert, CN II-XII Intact, Oriented x3 Additional comments: (+) dermatomal sensation is intact in bilatral upper and lower extremities (+) 5/5 str in bilateral upper and lower extremities (-) babinski bilaterally (+) finger to nose is intact - Psychiatric Exam Psychiatric exam: Normal Affect, Normal Mood - Skin Skin Exam: Dry, Normal Color, Warm Results - Vital Signs Recent Vital Signs: Last Vital Signs Temp 98.2 F 11/11/17 13:47 Pulse 59 L 11/11/17 13:47 Resp 18 11/11/17 13:47 BP 167/81 H 11/11/17 13:47 Pulse Ox 98 11/11/17 14:12 - Labs Result Diagrams: 11/11/17 12:16 11/11/17 12:16 Labs: Laboratory Results - last 24 hr 11/11/17 11/11/17 11/11/17 10:26 12:16 12:16 WBC 9.3 RBC 4.65 Hgb 14.3 Hct 42.5 MCV 91.5 MCH 30.8 MCHC 33.7 RDW 15.2 H Plt Count 355 MPV 9.2 Neut % (Auto) 67.5 Lymph % (Auto) 27.2 Colbert % (Auto) 3.7 Eos % (Auto) 0.1 Baso % (Auto) 1.5 Neut # (Auto) 6.3 Lymph # (Auto) 2.5 Colbert # (Auto) 0.3 Eos # (Auto) 0.0 Baso # (Auto) 0.1 Sodium Potassium Chloride Carbon Dioxide Anion Gap BUN Creatinine Est GFR ( Amer) Est GFR (Non-Af Amer) POC Glucose (mg/dL) 230 H Random Glucose Calcium Total Bilirubin AST ALT Alkaline Phosphatase Total Creatine Kinase CK-MB (Mass) Troponin I Total Protein Albumin Globulin Albumin/Globulin Ratio TSH 3rd Generation Urine Color Straw Urine Clarity Clear Urine pH 5.0 Ur Specific Idamay 1.003 Urine Protein Negative Urine Glucose (UA) 2+ H Urine Ketones Negative Urine Blood Trace-intact Urine Nitrate Negative Urine Bilirubin Negative Urine Urobilinogen Normal Ur Leukocyte Esterase Neg Urine WBC (Auto) < 1 Urine RBC (Auto) 1 Ur Squamous Epith Cells 1 Urine Bacteria Rare Urine Opiates Screen Urine Methadone Screen Ur Barbiturates Screen Ur Phencyclidine Scrn Ur Amphetamines Screen U Benzodiazepines Scrn U Oth Cocaine Metabols U Cannabinoids Screen 11/11/17 11/11/17 12:16 15:06 WBC RBC Hgb Hct MCV MCH MCHC RDW Plt Count MPV Neut % (Auto) Lymph % (Auto) Colbert % (Auto) Eos % (Auto) Baso % (Auto) Neut # (Auto) Lymph # (Auto) Colbert # (Auto) Eos # (Auto) Baso # (Auto) Sodium 143 Potassium 5.1 Chloride 105 Carbon Dioxide 26 Anion Gap 17 BUN 11 Creatinine 0.8 Est GFR ( Amer) > 60 Est GFR (Non-Af Amer) > 60 POC Glucose (mg/dL) Random Glucose 192 H Calcium 10.5 H Total Bilirubin 0.2 AST 33 ALT 48 Alkaline Phosphatase 124 Total Creatine Kinase 104 CK-MB (Mass) 0.49 Troponin I < 0.0120 Total Protein 7.9 Albumin 4.5 Globulin 3.4 Albumin/Globulin Ratio 1.3 TSH 3rd Generation 1.25 Urine Color Urine Clarity Urine pH Ur Specific Idamay Urine Protein Urine Glucose (UA) Urine Ketones Urine Blood Urine Nitrate Urine Bilirubin Urine Urobilinogen Ur Leukocyte Esterase Urine WBC (Auto) Urine RBC (Auto) Ur Squamous Epith Cells Urine Bacteria Urine Opiates Screen Negative Urine Methadone Screen Negative Ur Barbiturates Screen Negative Ur Phencyclidine Scrn Negative Ur Amphetamines Screen Negative U Benzodiazepines Scrn Negative U Oth Cocaine Metabols Negative U Cannabinoids Screen Negative Assessment & Plan - Assessment and Plan (Free Text) Assessment: This is a 61 year old female with PMH of questionable TIA in the past, PAD with stents, HTN, HLD, DM2, Hypothyroidism, RA who presents to the ED with a 2 day history of dizziness, described as a constant feeling of the room spinning, with fatigue, blurry vision and nausea. In the ED, pt's Head CT w/o contrast showed right basal ganglia lacunar infarct. New hypodensity 4 mm in the right caudate head suggestive for lacunar infarct, age indeterminate. (see full report). Plan: Ischemic CVA - Head CT shows right basal lacunar infarct. New focal hypodensity measuring 4 mm in the right caudate head suggestive for a lacunar infarct, age indeterminate. Chronic microvascular ischemic changes. (see full report) - pt received ASA 325 in the ED. - UDS is negative - troponin x1 is negative; will trend MIGUEL panel x2 Q6H - rosuvastatin 20 mg PO QHS, ASA 81 mg PO daily - will start meclizine 25 mg PO daily, as pt reports that it improved her dizziness while in the hospital - permissive HTN for now - Enalaprilat 2.5 mg IVP q6h PRN SBP>200 - fall, seizure, aspiration precautions - PT/OT - Neurology consulted, recs appreciated - f/u head and brain MRI without contrast, neck CTA, echocardiogram, orthostatic blood pressures Hx of HTN - permissive HTN for now - Enalaprilat 2.5 mg IVP q6h PRN SBP>200 - continue home cozaar 25 mg PO daily DM2 - HgbA1c is 6.7 on 09/16/17 - hold home metformin - pt is reluctant to take insulin SC, but once I explained need for glycemic control and adverse effects of metformin and IV contrast, pt agreed - accucheck ACHS - ISS low SC ACHS Hx of dyslipidemia - TG/CHL/LDL/HDL is 108/163/86/38 on 09/16/17 - rosuvastatin 20 mg PO QHS Hx of hypothyroidism - TSH is 1.25 - free t4 is 1.38 on 11/04/17 - continue home levothyroxine 88 mcg PO daily am PPX/Diet: - Protonix for GI - SCDs for DVT ppx - HHD Case discussed with attending physician, Dr. Nicole Casanova PGY-1 <Wesly Rivera H - Last Filed: 11/12/17 07:43> Results - Vital Signs Recent Vital Signs: Last Vital Signs Temp 98.3 F 11/12/17 04:10 Pulse 62 11/12/17 04:10 Resp 20 11/12/17 04:10 BP 124/71 11/12/17 04:10 Pulse Ox 97 11/12/17 04:10 - Labs Result Diagrams: 11/12/17 06:58 11/11/17 12:16 Labs: Laboratory Results - last 24 hr 11/11/17 11/11/17 11/11/17 10:26 12:16 12:16 WBC 9.3 RBC 4.65 Hgb 14.3 Hct 42.5 MCV 91.5 MCH 30.8 MCHC 33.7 RDW 15.2 H Plt Count 355 MPV 9.2 Neut % (Auto) 67.5 Lymph % (Auto) 27.2 Colbert % (Auto) 3.7 Eos % (Auto) 0.1 Baso % (Auto) 1.5 Neut # (Auto) 6.3 Lymph # (Auto) 2.5 Colbert # (Auto) 0.3 Eos # (Auto) 0.0 Baso # (Auto) 0.1 PT INR APTT Sodium Potassium Chloride Carbon Dioxide Anion Gap BUN Creatinine Est GFR ( Amer) Est GFR (Non-Af Amer) POC Glucose (mg/dL) 230 H Random Glucose Calcium Total Bilirubin AST ALT Alkaline Phosphatase Total Creatine Kinase CK-MB (Mass) Troponin I Total Protein Albumin Globulin Albumin/Globulin Ratio TSH 3rd Generation Urine Color Straw Urine Clarity Clear Urine pH 5.0 Ur Specific Idamay 1.003 Urine Protein Negative Urine Glucose (UA) 2+ H Urine Ketones Negative Urine Blood Trace-intact Urine Nitrate Negative Urine Bilirubin Negative Urine Urobilinogen Normal Ur Leukocyte Esterase Neg Urine WBC (Auto) < 1 Urine RBC (Auto) 1 Ur Squamous Epith Cells 1 Urine Bacteria Rare Urine Opiates Screen Urine Methadone Screen Ur Barbiturates Screen Ur Phencyclidine Scrn Ur Amphetamines Screen U Benzodiazepines Scrn U Oth Cocaine Metabols U Cannabinoids Screen 11/11/17 11/11/17 11/11/17 12:16 15:06 17:02 WBC RBC Hgb Hct MCV MCH MCHC RDW Plt Count MPV Neut % (Auto) Lymph % (Auto) Colbert % (Auto) Eos % (Auto) Baso % (Auto) Neut # (Auto) Lymph # (Auto) Colbert # (Auto) Eos # (Auto) Baso # (Auto) PT INR APTT Sodium 143 Potassium 5.1 Chloride 105 Carbon Dioxide 26 Anion Gap 17 BUN 11 Creatinine 0.8 Est GFR ( Amer) > 60 Est GFR (Non-Af Amer) > 60 POC Glucose (mg/dL) 101 Random Glucose 192 H Calcium 10.5 H Total Bilirubin 0.2 AST 33 ALT 48 Alkaline Phosphatase 124 Total Creatine Kinase 104 CK-MB (Mass) 0.49 Troponin I < 0.0120 Total Protein 7.9 Albumin 4.5 Globulin 3.4 Albumin/Globulin Ratio 1.3 TSH 3rd Generation 1.25 Urine Color Urine Clarity Urine pH Ur Specific Idamay Urine Protein Urine Glucose (UA) Urine Ketones Urine Blood Urine Nitrate Urine Bilirubin Urine Urobilinogen Ur Leukocyte Esterase Urine WBC (Auto) Urine RBC (Auto) Ur Squamous Epith Cells Urine Bacteria Urine Opiates Screen Negative Urine Methadone Screen Negative Ur Barbiturates Screen Negative Ur Phencyclidine Scrn Negative Ur Amphetamines Screen Negative U Benzodiazepines Scrn Negative U Oth Cocaine Metabols Negative U Cannabinoids Screen Negative 11/11/17 11/11/17 11/11/17 18:26 19:01 21:22 WBC RBC Hgb Hct MCV MCH MCHC RDW Plt Count MPV Neut % (Auto) Lymph % (Auto) Colbert % (Auto) Eos % (Auto) Baso % (Auto) Neut # (Auto) Lymph # (Auto) Colbert # (Auto) Eos # (Auto) Baso # (Auto) PT 11.5 INR 1.1 APTT 40 H Sodium Potassium Chloride Carbon Dioxide Anion Gap BUN Creatinine Est GFR ( Amer) Est GFR (Non-Af Amer) POC Glucose (mg/dL) 127 H Random Glucose Calcium Total Bilirubin AST ALT Alkaline Phosphatase Total Creatine Kinase 94 CK-MB (Mass) 0.58 Troponin I < 0.0120 Total Protein Albumin Globulin Albumin/Globulin Ratio TSH 3rd Generation Urine Color Urine Clarity Urine pH Ur Specific Idamay Urine Protein Urine Glucose (UA) Urine Ketones Urine Blood Urine Nitrate Urine Bilirubin Urine Urobilinogen Ur Leukocyte Esterase Urine WBC (Auto) Urine RBC (Auto) Ur Squamous Epith Cells Urine Bacteria Urine Opiates Screen Urine Methadone Screen Ur Barbiturates Screen Ur Phencyclidine Scrn Ur Amphetamines Screen U Benzodiazepines Scrn U Oth Cocaine Metabols U Cannabinoids Screen 11/12/17 11/12/17 11/12/17 00:50 06:34 06:58 WBC 8.4 RBC 4.30 Hgb 13.3 Hct 39.1 MCV 90.9 MCH 31.0 MCHC 34.1 RDW 14.9 H Plt Count 320 MPV 8.7 Neut % (Auto) 41.2 L Lymph % (Auto) 49.3 H Colbert % (Auto) 6.9 Eos % (Auto) 1.5 Baso % (Auto) 1.1 Neut # (Auto) 3.4 Lymph # (Auto) 4.1 Colbert # (Auto) 0.6 Eos # (Auto) 0.1 Baso # (Auto) 0.1 PT INR APTT Sodium Potassium Chloride Carbon Dioxide Anion Gap BUN Creatinine Est GFR ( Amer) Est GFR (Non-Af Amer) POC Glucose (mg/dL) 119 H Random Glucose Calcium Total Bilirubin AST ALT Alkaline Phosphatase Total Creatine Kinase 88 CK-MB (Mass) 0.52 Troponin I < 0.0120 Total Protein Albumin Globulin Albumin/Globulin Ratio TSH 3rd Generation Urine Color Urine Clarity Urine pH Ur Specific Idamay Urine Protein Urine Glucose (UA) Urine Ketones Urine Blood Urine Nitrate Urine Bilirubin Urine Urobilinogen Ur Leukocyte Esterase Urine WBC (Auto) Urine RBC (Auto) Ur Squamous Epith Cells Urine Bacteria Urine Opiates Screen Urine Methadone Screen Ur Barbiturates Screen Ur Phencyclidine Scrn Ur Amphetamines Screen U Benzodiazepines Scrn U Oth Cocaine Metabols U Cannabinoids Screen Attending/Attestation - Attestation I have personally seen and examined this patient.: Yes I have fully participated in the care of the patient.: Yes I have reviewed all pertinent clinical information: Yes Notes (Text): 11/12/17 07:38 Medical attending: Patient was seen and examined by me. Agree with the above note by the medical lab technician The patient was not in any acute distress when I came and saw patient. Family member was at bedside. The patient on CT scan of the head had concerning findings of at least a small CVA in the lacunar ganglia area. She did not have musculoskeletal / neurological deficits on exam however she explained to us she has been consistently dizzy. The patient does have risk factors including smoking, DM, HTN and we talked about this in particular the smoking. An echo was ordered as well as CTA of head and neck and I asked the resident to call patient motion picture narrator if the stents in her lower extremity are MRI compatible, if so will check MRI. Wesly Rivera
[2017-11-11] MEDS ORDERED: Iodixanol 320 mg/ml 150 ml Bottle IV ONE (16:52)
[2017-11-11] MEDS ORDERED: Enalaprilat 2.5 MG/2 ML IV PRN (16:53)
[2017-11-11] MEDS: (Novolin R) Insulin Human Regular 100 units/ml vial SC SCH ×2 (17:04→22:23)
--- NOTE | 2017-11-11 18:26 | CT ---
Date of service: 11/11/2017 PROCEDURE: CT Angiography of the neck and brain with contrast HISTORY: cva COMPARISON: None. TECHNIQUE: Contiguous axial images of the neck were obtained from the level of the vertex of the skull to the superior mediastinum in the arteriographic phase of enhancement. Coronal and sagittal reformats or also generated. IV contrast dose: 100 cc Visipaque 320 contrast material. Hi this is doctors about Radiation Dose - DLP: 390.49 mGy-cm This CT exam was performed using one or more of the following dose reduction techniques: Automated exposure control, adjustment of the mA and/or kV according to patient size, and/or use of iterative reconstruction technique. FINDINGS: Minimal of partially calcified atherosclerotic plaque changes seen at the origins of the great vessels. RIGHT CAROTID ARTERIES: Common Carotid Artery: Normal. Carotid Bifurcation: Normal. Internal Carotid Artery:Normal. External Carotid Artery (proximal branches): Normal. LEFT CAROTID ARTERIES: Common Carotid Artery: Normal. Carotid Bifurcation: Normal. Internal Carotid Artery:Normal. External Carotid Artery (proximal branches): Normal. VERTEBRAL ARTERIES: Both vertebral arteries are patent though there is mild asymmetry left-sided which is larger in caliber/more dominant than the right. OTHER FINDINGS: The major branches of the [id number] are patent. The distal on anterior middle and posterior cerebral arteries are also patent and relatively symmetric in appearance. No evidence of large intra cerebral aneurysm nor vascular malformation. Significant centrilobular emphysematous changes seen in the lung apices and upper lobes. No evidence of pneumothorax. Minor multilevel degenerative spondylosis of the cervical spine IMPRESSION: Normal CT Angiography of the neck.
[2017-11-11 19:02] LABS: CK-MB 0.58 ng/mL (0.0-3.38)
[2017-11-11 19:19] LABS: INR 1.1; PROTHROMBIN TIME 11.5 SECONDS (9.7-12.2)
[2017-11-11 20:17] VITALS: RESP 20
[2017-11-12 01:41] LABS: CK-MB 0.52 ng/mL (0.0-3.38)
[2017-11-12] MEDS: Levothyroxine 88 MCG TAB PO SCH (06:31)
[2017-11-12 07:26] LABS: BASO # 0.1 K/uL (0.0-0.2); BASO % 1.1 % (0.0-2.0); EOS # 0.1 K/uL (0.0-0.7); EOS % 1.5 % (0.0-4.0); HEMOGLOBIN 13.3 g/dL (11.0-16.0); LYMPH # 4.1 K/uL (1.0-4.3); LYMPH % 49.3 % (20.0-40.0); MEAN CELL VOLUME 90.9 fL (81.0-99.0); MEAN CORPUSCULAR HGB CONC 34.1 g/dL (33.0-37.0); MEAN PLATELET VOLUME 8.7 fL (7.2-11.7); MONO # 0.6 K/uL (0.0-0.8); MONO % 6.9 % (0.0-10.0); NEUT # 3.4 K/uL (1.8-7.0); NEUT % 41.2 % (50.0-75.0); NRBC % 0.1 % (0.0-2.0); RBC 4.3 Mil/uL (3.80-5.20); RED CELL DISTRIBUTION WIDTH 14.9 % (11.5-14.5); WHITE BLOOD COUNT 8.4 K/uL (4.8-10.8)
[2017-11-12 08:11] LABS: ALB/GLOB RATIO 1.2 (1.0-2.1); ALBUMIN 3.7 g/dL (3.5-5.0); ALT/SGPT 34 U/L (9-52); AST/SGOT 28 U/L (14-36); BLOOD UREA NITROGEN 13 mg/dL (7-17); CALCIUM 9.2 mg/dl (8.6-10.4); GFR NON-AFRICAN AMERICAN > 60
[2017-11-12] MEDS: (Novolin R) Insulin Human Regular 100 units/ml vial SC SCH ×4 (08:19→21:22)
--- NOTE | 2017-11-12 11:39 | CP.PCM.PN ---
<Jason Casanova - Last Filed: 11/12/17 14:45> Subjective - Date & Time of Evaluation Date of Evaluation: 11/12/17 Time of Evaluation: 11:38 - Subjective Subjective: Jason Casanova PGY-1, Medicine progress note for Dr. Rivera Pt was seen and examined at bedside. No acute events overnight. Pt is resting comfortably in bed. She states that she had slight dizziness and lightheadedness when she woke up this morning, which went away quickly. Pt states that she has not had any dizziness other than this. She denies fever, chills, focal weakness, chest pain, sob, palpitations, abdominal pain, N/V/D, paresthesias. Objective - Vital Signs/Intake and Output Vital Signs (last 24 hours): Temp Pulse Resp BP Pulse Ox 98.1 F 57 L 20 148/71 97 11/12/17 08:36 11/12/17 08:36 11/12/17 08:36 11/12/17 08:36 11/12/17 08:36 Intake and Output: 11/12/17 11/12/17 06:59 18:59 Intake Total 210 Balance 210 - Medications Medications: Current Medications Acetaminophen (Tylenol 325mg Tab) 650 mg PO Q6 PRN PRN Reason: Pain, moderate (4-7) Aspirin (Aspirin Chewable) 81 mg PO DAILY [facility] Dextrose (Dextrose 50% Inj) 0 ml IV STAT PRN; Protocol PRN Reason: Hypoglycemia Protocol Dextrose (Glutose 15) 0 gm PO ONCE PRN; Protocol PRN Reason: Hypoglycemia Protocol Enalaprilat (Vasotec) 2.5 mg IV Q6 PRN PRN Reason: SBP>200 Glucagon (Glucagen Diagnostic Kit) 0 mg IM STAT PRN; Protocol PRN Reason: Hypoglycemia Protocol Dextrose (Dextrose 5% In Water 1000 Ml) 1,000 mls @ 0 mls/hr IV .Q0M PRN; Protocol PRN Reason: Hypoglycemia Protocol Influenza Virus Vaccine (Fluzone Quad [id number]) 60 mcg IM .ONCE ONE Stop: 11/13/17 12:01 Insulin Human Regular (Novolin R) 0 unit SC ACHS [facility]; Protocol Last Admin: 11/12/17 08:19 Dose: Not Given Levothyroxine Sodium (Synthroid) 88 mcg PO DAILY@0630 [facility] Last Admin: 11/12/17 06:31 Dose: 88 mcg Losartan Potassium (Cozaar) 25 mg PO Q24H [facility] Last Admin: 11/11/17 17:19 Dose: 25 mg Meclizine HCl (Antivert) 25 mg PO DAILY [facility] Pantoprazole Sodium (Protonix Ec Tab) 20 mg PO DAILY [facility] Rosuvastatin Calcium (Crestor) 20 mg PO HS [facility] Last Admin: 11/11/17 22:23 Dose: 20 mg - Labs Labs: 11/12/17 06:58 11/12/17 06:58 PT 11.5 SECONDS (9.7-12.2) 11/11/17 19:01 INR 1.1 11/11/17 19:01 APTT 40 SECONDS (21-34) H 11/11/17 19:01 - Constitutional Appears: Non-toxic, No Acute Distress - Head Exam Head Exam: NORMAL INSPECTION, NORMOCEPHALIC - Eye Exam Eye Exam: EOMI, Normal appearance - ENT Exam ENT Exam: Mucous Membranes Moist - Respiratory Exam Respiratory Exam: Clear to Ausculation Bilateral, Rhonchi (at the bases bilaterally), NORMAL BREATHING PATTERN. absent: Rales, Wheezes, Respiratory Distress, Stridor - Cardiovascular Exam Cardiovascular Exam: REGULAR RHYTHM, +S1, +S2 - GI/Abdominal Exam GI & Abdominal Exam: Soft, Normal Bowel Sounds. absent: Distended, Firm, Guarding, Rigid, Tenderness, Rebound - Extremities Exam Extremities Exam: Normal Capillary Refill, Normal Inspection. absent: Calf Tenderness, Pedal Edema - Back Exam Back Exam: NORMAL INSPECTION - Neurological Exam Neurological Exam: Alert, Awake, CN II-XII Intact, Oriented x3 Neuro motor strength exam: Left Upper Extremity: 5, Right Upper Extremity: 5, Left Lower Extremity: 5, Right Lower Extremity: 5 - Psychiatric Exam Psychiatric exam: Normal Affect, Normal Mood - Skin Skin Exam: Dry, Normal Color, Warm Assessment and Plan - Assessment and Plan (Free Text) Assessment: This is a 61 year old female with PMH of questionable TIA in the past, PAD with stents, HTN, HLD, DM2, Hypothyroidism, RA who presents to the ED with a 2 day history of dizziness, described as a constant feeling of the room spinning, with fatigue, blurry vision and nausea. In the ED, pt's Head CT w/o contrast showed right basal ganglia lacunar infarct. New hypodensity 4 mm in the right caudate head suggestive for lacunar infarct, age indeterminate. (see full report). Plan: Dizzyness; likely central vertigo vs ischemic CVA vs orthostatic hypotension - Head CT (11/11) shows right basal lacunar infarct. New focal hypodensity measuring 4 mm in the right caudate head suggestive for a lacunar infarct, age indeterminate. Chronic microvascular ischemic changes. (see full report) - Case discussed with pt's fence repairman, Dr. Johnson, who reports that the stents she received will not interact with a brain MRI -Brain MRI without contrast (11/12) shows no acute subacute brain infarction appreciated including the right caudate head. Chronic lacune is seen here as well as at the right thalamus. Very limited age-related degenerative changes are identified which appears age-appropriate in this pt. - pt received ASA 325 in the ED. - UDS is negative - MIGUEL panel x 3 is negative - rosuvastatin 20 mg PO QHS, ASA 81 mg PO daily - fall, seizure, aspiration precautions - PT/OT - Neurology consulted, recs appreciated - Echocardiogram (05/2017) shows LVEF 55-60%, diastolic dysfunction. Mild MR. Moderate TR. Mild pulmonary hypertension. - f/u orthostatic blood pressures - Continue meclizine 25 mg PO daily, as pt reports that it improved her dizziness while in the hospital Hx of HTN - Pt's BP has been well controlled on home medication - continue home cozaar 25 mg PO daily - Enalaprilat 2.5 mg IVP q6h PRN SBP>200 DM2 - HgbA1c is 6.7 on 09/16/17 - hold home metformin - pt is reluctant to take insulin SC, but once I explained need for glycemic control and adverse effects of metformin and IV contrast, pt agreed - accucheck ACHS - ISS low SC ACHS Hx of dyslipidemia - TG/CHL/LDL/HDL is 108/163/86/38 on 09/16/17 - rosuvastatin 20 mg PO QHS Hx of hypothyroidism - TSH is 1.25 - free t4 is 1.38 on 11/04/17 - continue home levothyroxine 88 mcg PO daily am PPX/Diet: - Protonix for GI - SCDs for DVT ppx - HHD Case discussed with attending physician, Dr. Nicole Casanova PGY-1 <Wesly Rivera H - Last Filed: 11/12/17 16:38> Objective - Vital Signs/Intake and Output Vital Signs (last 24 hours): Temp Pulse Resp BP Pulse Ox 98.2 F 61 20 150/72 96 11/12/17 15:57 11/12/17 15:57 11/12/17 15:57 11/12/17 15:57 11/12/17 15:57 Intake and Output: 11/12/17 11/12/17 06:59 18:59 Intake Total 210 Balance 210 - Medications Medications: Current Medications Acetaminophen (Tylenol 325mg Tab) 650 mg PO Q6 PRN PRN Reason: Pain, moderate (4-7) Aspirin (Aspirin Chewable) 81 mg PO DAILY [facility] Last Admin: 11/12/17 12:35 Dose: 81 mg Dextrose (Dextrose 50% Inj) 0 ml IV STAT PRN; Protocol PRN Reason: Hypoglycemia Protocol Dextrose (Glutose 15) 0 gm PO ONCE PRN; Protocol PRN Reason: Hypoglycemia Protocol Enalaprilat (Vasotec) 2.5 mg IV Q6 PRN PRN Reason: SBP>200 Last Admin: 11/12/17 12:21 Dose: 2.5 mg Glucagon (Glucagen Diagnostic Kit) 0 mg IM STAT PRN; Protocol PRN Reason: Hypoglycemia Protocol Dextrose (Dextrose 5% In Water 1000 Ml) 1,000 mls @ 0 mls/hr IV .Q0M PRN; Protocol PRN Reason: Hypoglycemia Protocol Influenza Virus Vaccine (Fluzone Quad [id number]) 60 mcg IM .ONCE ONE Stop: 11/13/17 12:01 Insulin Human Regular (Novolin R) 0 unit SC [facility]; Protocol Last Admin: 11/12/17 12:38 Dose: Not Given Levothyroxine Sodium (Synthroid) 88 mcg PO DAILY@0630 [facility] Last Admin: 11/12/17 06:31 Dose: 88 mcg Losartan Potassium (Cozaar) 25 mg PO Q24H [facility] Last Admin: 11/11/17 17:19 Dose: 25 mg Meclizine HCl (Antivert) 25 mg PO DAILY [facility] Last Admin: 11/12/17 12:33 Dose: 25 mg Pantoprazole Sodium (Protonix Ec Tab) 20 mg PO DAILY [facility] Last Admin: 11/12/17 12:36 Dose: 20 mg Rosuvastatin Calcium (Crestor) 20 mg PO HS [facility] Last Admin: 11/11/17 22:23 Dose: 20 mg - Labs Labs: 11/12/17 06:58 11/12/17 06:58 PT 11.5 SECONDS (9.7-12.2) 11/11/17 19:01 INR 1.1 11/11/17 19:01 APTT 40 SECONDS (21-34) H 11/11/17 19:01 Attending/Attestation - Attestation I have personally seen and examined this patient.: Yes I have fully participated in the care of the patient.: Yes I have reviewed all pertinent clinical information, including history, physical exam and plan: Yes Notes (Text): Medical attending: Patient was seen and examined by me. Reviewed the above note by the resident and agree with the above note by the resident Today the dizziness that the patient had reported having yesterday had greatly decreased. She was tolerating her diet, speech was normal per family and she reported no weakness or deficits in the extremity. On exam we also had her stand up and walk and she was able to do this on her own without our assistance, she does use a cane and the gait is slow. She will need PT/OT evaluation. The MRI did return and showed that the area in question may have been ol d/chronic in nature as opposed to something acute. CTA of the head and neck was stable Regardless she still has the risk factors of smoking, HTN, and also DM. She had an echo 5 months ago and I went over the results and for now will hold off on a new echo. Wesly Rivera 11/12/17 16:38
--- NOTE | 2017-11-12 12:06 | MRI ---
Date of service: 11/12/2017 PROCEDURE: MRI BRAIN WITHOUT CONTRAST HISTORY: ischemic cva on head ct COMPARISON: None available. TECHNIQUE: Multiplanar, multisequence MR images of the brain were obtained without intravenous contrast enhancement. FINDINGS: HEMORRHAGE: None DWI: No evidence of an acute or early subacute infarction. BRAIN PARENCHYMA: Lacune is seen the right caudate head as well as the medial right thalamus with borderline diffuse cerebral atrophy chronic microangiopathy reiterated this patient. There is no mass effect or other suspicious acute finding. No suspicious extra-axial collection. Limited chronic microangiopathy is identified in the danny as well. VENTRICLES: Unremarkable. No hydrocephalus. CRANIUM: Unremarkable. ORBITS: Grossly unremarkable. PARANASAL SINUSES/MASTOIDS: Clear VASCULAR SYSTEM: Skull base flow voids intact. OTHER FINDINGS: None. IMPRESSION: No acute subacute brain infarction appreciated including the right caudate head. Chronic lacune is seen here is well as at the right thalamus. Very limited age-related degenerative change are identified which appear age-appropriate in this patient.
[2017-11-12] MEDS: Pantoprazole 20 mg EC Tab PO SCH (12:36)
--- NOTE | 2017-11-12 15:46 | CP.PCM.CON ---
<Edmund Fairbanks - Last Filed: 11/12/17 16:01> History of Present Illness - History of Present Illness History of Present Illness: 61year old female with a past medical history tia, htn, dm2, hypothyroidism, ra comes in after complaining of severe dizziness for the past two days. The patie nt first reported the issue on Saturday. She reports the room spinning no matter sitting or standing. She does report this happening in the past. She does have a history of inner ear problems with whom she previously followed with an ENT. She denies any nausea, vomiting, chest pain, palpitations, headaches, or any other complaints. PMD: Dr. Hsieh ([facility]) Cardiology: Dr. Jennie Johnson PMH: questionable TIA in the past as per pt, PAD with stents, HTN, HLD, DM2, Hypothyroidism, RA PSH: SFA athrectomy 04/2016, vascular stents in right leg 03/2014, vascular stent in left leg 02/2014, thyroid lobectomy 02/2004 Meds: see MAR; levothyroxine 88 mcg PO daily (changed form 125 mcg 6 weeks ago) Allx: NKDA FHx: Father had an GA at the age of 65 (triple vessel disease), mother iwth DM2, from cervical cancer. No history of other cancers in the family. Social Hx: smokes 1/2 PPD currently, 60+ pack year history. etoh socially, denies illicit drug use. Lives with in . Currently on disability, worked as a home health aide for 25 years. Review of Systems - Constitutional Constitutional: absent: Daytime Sleepiness, Headache, Snoring, Weakness - EENT Eyes: absent: Blurred Vision, Discharge, Loss of Peripheral Vision, Sees Flashes Ears: Dizziness. absent: Ear Discharge, Disequilibrium Nose/Mouth/Throat: absent: Nasal Congestion, Nose Pain, Bleeding Gums, Halitosis - Cardiovascular Cardiovascular: absent: Chest Pain, Claudication, Irregular Heart Rhythm, Syncope - Respiratory Respiratory: absent: Dyspnea - Gastrointestinal Gastrointestinal: absent: Belching, Change in Stool Character, Dyspepsia, Fecal Incontinence, Loose Stools, Melena, Nausea - Musculoskeletal Musculoskeletal: absent: Atrophy, Myalgias, Neck Pain - Integumentary Integumentary: absent: Alopecia, Rash, Skin Pain, Swelling - Neurological Neurological: Vertigo. absent: Syncope, Tingling, Tremor, Weakness - Psychiatric Psychiatric: absent: Behavioral Changes, Hopelessness, Panic Attacks, Paranoia - Endocrine Endocrine: absent: Polydipsia, Polyphagia, Polyuria - Hematologic/Lymphatic Hematologic: absent: Easy Bleeding, Easy Bruising Past Patient History - Infectious Disease Hx of Infectious Diseases: None - Past Medical History & Family History Past Medical History?: Yes - Past Social History Smoking Status: Light Smoker < 10 Cigarettes Daily - CARDIAC Hx Hypercholesterolemia: Yes Hx Hypertension: Yes - PULMONARY Hx Pneumonia: Yes - NEUROLOGICAL Hx Neurological Disorder: No - HEENT Hx HEENT Problems: Yes (wears glasses) - RENAL Hx Chronic Kidney Disease: No - ENDOCRINE/METABOLIC Hx Diabetes Mellitus Type 2: Yes Hx Hypothyroidism: Yes - HEMATOLOGICAL/ONCOLOGICAL Hx Blood Disorders: No - INTEGUMENTARY Hx Dermatological Problems: No - MUSCULOSKELETAL/RHEUMATOLOGICAL Hx Arthritis: Yes - GASTROINTESTINAL Hx Gastrointestinal Disorders: No - GENITOURINARY/GYNECOLOGICAL Hx Genitourinary Disorders: No - PSYCHIATRIC Hx Substance Use: No - SURGICAL HISTORY Hx Surgeries: Yes Hx Angiogram: Yes Hx Orthopedic Surgery: Yes (BILAT BUNIONECTOMY) Other/Comment: thyroid sx,. stents to rt leg - ANESTHESIA Hx Anesthesia: Yes Hx Anesthesia Reactions: No Hx Malignant Hyperthermia: No Meds Allergies/Adverse Reactions: Allergies Allergy/AdvReac Type Severity Reaction Status Date / Time No Known Allergies Allergy Verified 11/11/17 10:26 - Medications Medications: Current Medications Acetaminophen (Tylenol 325mg Tab) 650 mg PO Q6 PRN PRN Reason: Pain, moderate (4-7) Aspirin (Aspirin Chewable) 81 mg PO DAILY [facility] Last Admin: 11/12/17 12:35 Dose: 81 mg Dextrose (Dextrose 50% Inj) 0 ml IV STAT PRN; Protocol PRN Reason: Hypoglycemia Protocol Dextrose (Glutose 15) 0 gm PO ONCE PRN; Protocol PRN Reason: Hypoglycemia Protocol Enalaprilat (Vasotec) 2.5 mg IV Q6 PRN PRN Reason: SBP>200 Last Admin: 11/12/17 12:21 Dose: 2.5 mg Glucagon (Glucagen Diagnostic Kit) 0 mg IM STAT PRN; Protocol PRN Reason: Hypoglycemia Protocol Dextrose (Dextrose 5% In Water 1000 Ml) 1,000 mls @ 0 mls/hr IV .Q0M PRN; Protocol PRN Reason: Hypoglycemia Protocol Influenza Virus Vaccine (Fluzone Quad [id number]) 60 mcg IM .ONCE ONE Stop: 11/13/17 12:01 Insulin Human Regular (Novolin R) 0 unit SC [facility]; Protocol Last Admin: 11/12/17 12:38 Dose: Not Given Levothyroxine Sodium (Synthroid) 88 mcg PO DAILY@0630 [facility] Last Admin: 11/12/17 06:31 Dose: 88 mcg Losartan Potassium (Cozaar) 25 mg PO Q24H [facility] Last Admin: 11/11/17 17:19 Dose: 25 mg Meclizine HCl (Antivert) 25 mg PO DAILY [facility] Last Admin: 11/12/17 12:33 Dose: 25 mg Pantoprazole Sodium (Protonix Ec Tab) 20 mg PO DAILY [facility] Last Admin: 11/12/17 12:36 Dose: 20 mg Rosuvastatin Calcium (Crestor) 20 mg PO HS [facility] Last Admin: 11/11/17 22:23 Dose: 20 mg Physical Exam - Head Exam Head Exam: ATRAUMATIC, NORMAL INSPECTION - Eye Exam Eye Exam: EOMI, Normal appearance, PERRL Pupil Exam: NORMAL ACCOMODATION - ENT Exam ENT Exam: Mucous Membranes Moist, Normal Oropharynx - Respiratory Exam Respiratory Exam: Clear to Auscultation Bilateral, NORMAL BREATHING PATTERN. absent: Respiratory Distress - Cardiovascular Exam Cardiovascular Exam: REGULAR RHYTHM, +S1, +S2 - GI/Abdominal Exam GI & Abdominal Exam: Normal Bowel Sounds - Back Exam Back exam: NORMAL INSPECTION. absent: paraspinal tenderness - Neurological Exam Neurological exam: Alert, CN II-XII Intact, Oriented x3 - Expanded Neurological Exam Expanded Cerebellar Function: Finger to Nose: Normal Neuro motor strength exam: Left Upper Extremity: 5, Right Upper Extremity: 5, Left Lower Extremity: 5, Right Lower Extremity: 5 - Psychiatric Exam Psychiatric exam: Normal Affect, Normal Mood - Skin Skin Exam: Dry, Intact, Normal Color Results - Vital Signs Recent Vital Signs: Last Vital Signs Temp 98.1 F 11/12/17 08:36 Pulse 57 L 11/12/17 08:36 Resp 20 11/12/17 08:36 BP 139/71 11/12/17 12:21 Pulse Ox 97 11/12/17 08:36 - Labs Result Diagrams: 11/12/17 06:58 11/12/17 06:58 Labs: Laboratory Results - last 24 hr 11/11/17 11/11/17 11/11/17 15:06 17:02 18:26 WBC RBC Hgb Hct MCV MCH MCHC RDW Plt Count MPV Neut % (Auto) Lymph % (Auto) Holmes % (Auto) Eos % (Auto) Baso % (Auto) Neut # (Auto) Lymph # (Auto) Holmes # (Auto) Eos # (Auto) Baso # (Auto) PT INR APTT Sodium Potassium Chloride Carbon Dioxide Anion Gap BUN Creatinine Est GFR ( Amer) Est GFR (Non-Af Amer) POC Glucose (mg/dL) 101 Random Glucose Calcium Phosphorus Magnesium Total Bilirubin AST ALT Alkaline Phosphatase Total Creatine Kinase 94 CK-MB (Mass) 0.58 Troponin I < 0.0120 Total Protein Albumin Globulin Albumin/Globulin Ratio Urine Opiates Screen Negative Urine Methadone Screen Negative Ur Barbiturates Screen Negative Ur Phencyclidine Scrn Negative Ur Amphetamines Screen Negative U Benzodiazepines Scrn Negative U Oth Cocaine Metabols Negative U Cannabinoids Screen Negative 11/11/17 11/11/17 11/12/17 19:01 21:22 00:50 WBC RBC Hgb Hct MCV MCH MCHC RDW Plt Count MPV Neut % (Auto) Lymph % (Auto) Holmes % (Auto) Eos % (Auto) Baso % (Auto) Neut # (Auto) Lymph # (Auto) Holmes # (Auto) Eos # (Auto) Baso # (Auto) PT 11.5 INR 1.1 APTT 40 H Sodium Potassium Chloride Carbon Dioxide Anion Gap BUN Creatinine Est GFR ( Amer) Est GFR (Non-Af Amer) POC Glucose (mg/dL) 127 H Random Glucose Calcium Phosphorus Magnesium Total Bilirubin AST ALT Alkaline Phosphatase Total Creatine Kinase 88 CK-MB (Mass) 0.52 Troponin I < 0.0120 Total Protein Albumin Globulin Albumin/Globulin Ratio Urine Opiates Screen Urine Methadone Screen Ur Barbiturates Screen Ur Phencyclidine Scrn Ur Amphetamines Screen U Benzodiazepines Scrn U Oth Cocaine Metabols U Cannabinoids Screen 11/12/17 11/12/17 11/12/17 06:34 06:58 06:58 WBC 8.4 RBC 4.30 Hgb 13.3 Hct 39.1 MCV 90.9 MCH 31.0 MCHC 34.1 RDW 14.9 H Plt Count 320 MPV 8.7 Neut % (Auto) 41.2 L Lymph % (Auto) 49.3 H Holmes % (Auto) 6.9 Eos % (Auto) 1.5 Baso % (Auto) 1.1 Neut # (Auto) 3.4 Lymph # (Auto) 4.1 Holmes # (Auto) 0.6 Eos # (Auto) 0.1 Baso # (Auto) 0.1 PT INR APTT Sodium 142 Potassium 4.3 Chloride 110 H Carbon Dioxide 22 Anion Gap 15 BUN 13 Creatinine 0.8 Est GFR ( Amer) > 60 Est GFR (Non-Af Amer) > 60 POC Glucose (mg/dL) 119 H Random Glucose 131 H Calcium 9.2 Phosphorus 3.8 Magnesium 1.9 Total Bilirubin 0.3 AST 28 ALT 34 Alkaline Phosphatase 110 Total Creatine Kinase CK-MB (Mass) Troponin I Total Protein 6.8 Albumin 3.7 Globulin 3.1 Albumin/Globulin Ratio 1.2 Urine Opiates Screen Urine Methadone Screen Ur Barbiturates Screen Ur Phencyclidine Scrn Ur Amphetamines Screen U Benzodiazepines Scrn U Oth Cocaine Metabols U Cannabinoids Screen 11/12/17 11:28 WBC RBC Hgb Hct MCV MCH MCHC RDW Plt Count MPV Neut % (Auto) Lymph % (Auto) Holmes % (Auto) Eos % (Auto) Baso % (Auto) Neut # (Auto) Lymph # (Auto) Holmes # (Auto) Eos # (Auto) Baso # (Auto) PT INR APTT Sodium Potassium Chloride Carbon Dioxide Anion Gap BUN Creatinine Est GFR ( Amer) Est GFR (Non-Af Amer) POC Glucose (mg/dL) 112 H Random Glucose Calcium Phosphorus Magnesium Total Bilirubin AST ALT Alkaline Phosphatase Total Creatine Kinase CK-MB (Mass) Troponin I Total Protein Albumin Globulin Albumin/Globulin Ratio Urine Opiates Screen Urine Methadone Screen Ur Barbiturates Screen Ur Phencyclidine Scrn Ur Amphetamines Screen U Benzodiazepines Scrn U Oth Cocaine Metabols U Cannabinoids Screen Assessment & Plan - Assessment and Plan (Free Text) Assessment: 61year old female with a past medical history tia, htn, dm2, hypothyroidism, ra comes in after complaining of severe dizziness for the past two days. Plan: 1.Dizziness Head CT: Right basil ganglia lacunar infarct, old Head MRI: Negative for infarct :No acute subacute brain infarction appreciated including the right caudate head. Chronic lacune is seen here is well as at the right thalamus. Very limited age-related degenerative change are identified which appear age-appropriate in this patient. Head/Neck CTA No acute subacute brain infarction appreciated including the right caudate head. Chronic lacune is seen here is well as at the right thalamus. Very limited age-related degenerative change are identified which appear age- appropriate in this patient. Would recommend Vestibular therapy and ENT outpatient follow up. Patient has history in the past of being followed by one. Plan discussed with . Edmund Fairbanks, PGY-2 <Rosalva Her - Last Filed: 11/14/17 18:33> Results - Vital Signs Recent Vital Signs: Last Vital Signs Temp 97.9 F 11/13/17 08:06 Pulse 62 11/13/17 12:56 Resp 20 11/13/17 08:06 BP 146/68 11/13/17 08:06 Pulse Ox 96 11/13/17 08:06 - Labs Result Diagrams: 11/13/17 08:14 11/13/17 08:14 Assessment & Plan - Assessment and Plan (Free Text) Plan: All medical record entries made by the Resident were at my direction and personally dictated by me. I have reviewed the chart and agree that the record accurately reflects my personal performance of the history, physical exam, medical decision making, and the department course for this patient. I have also personally directed, reviewed, and agree with the discharge instructions and disposition. MIss Cotto is stable with normal neurologial examination. She will benefit from outpatient vestibular therapy. DR. her
[2017-11-12] MEDS ORDERED: Naproxen 550 mg Tab PO ONE (17:23)
[2017-11-13] MEDS: Levothyroxine 88 MCG TAB PO SCH (06:01)
[2017-11-13 08:08] VITALS: BP 146/68; TEMP 97.9
[2017-11-13] MEDS: (Novolin R) Insulin Human Regular 100 units/ml vial SC SCH ×2 (08:14→12:33)
[2017-11-13 08:24] LABS: BASO # 0.1 K/uL (0.0-0.2); BASO % 1.1 % (0.0-2.0); EOS # 0.1 K/uL (0.0-0.7); EOS % 1.4 % (0.0-4.0); HEMOGLOBIN 12.9 g/dL (11.0-16.0); LYMPH % 46.8 % (20.0-40.0); MEAN CELL VOLUME 91.6 fL (81.0-99.0); MEAN CORPUSCULAR HEMOGLOBIN 30.9 pg (27.0-31.0); MEAN CORPUSCULAR HGB CONC 33.8 g/dL (33.0-37.0); MEAN PLATELET VOLUME 8.8 fL (7.2-11.7); MONO # 0.7 K/uL (0.0-0.8); MONO % 7.9 % (0.0-10.0); NEUT # 3.7 K/uL (1.8-7.0); NEUT % 42.8 % (50.0-75.0); NRBC % 0.1 % (0.0-2.0); RBC 4.18 Mil/uL (3.80-5.20); RED CELL DISTRIBUTION WIDTH 14.9 % (11.5-14.5); WHITE BLOOD COUNT 8.6 K/uL (4.8-10.8)
[2017-11-13 08:51] LABS: ALB/GLOB RATIO 1.3 (1.0-2.1); ALT/SGPT 30 U/L (9-52); AST/SGOT 26 U/L (14-36); BLOOD UREA NITROGEN 19 mg/dL (7-17); CALCIUM 9.4 mg/dl (8.6-10.4); GFR NON-AFRICAN AMERICAN > 60
[2017-11-13] MEDS: Pantoprazole 20 mg EC Tab PO SCH (10:36)
[2017-11-13] MEDS ORDERED: Influenza Vaccine 60 MCG/0.5 ML SYR (3 yr & up) IM ONE (12:00)
--- NOTE | 2017-11-13 12:31 | CARD ---
APPROVED REPORT Date of service: 11/11/2017 EKG Measurement Heart [id number] <Conclusion> Sinus bradycardia Possible Left atrial enlargement Abnormal ECG
--- NOTE | 2017-11-13 12:44 | CARD ---
APPROVED REPORT Date of service: 11/11/2017 EKG Measurement Heart [id number] CT [id number] <Conclusion> Normal sinus rhythm Normal ECG
[2017-11-13 12:59] VITALS: PULSE 62
--- NOTE | 2017-11-13 13:15 | CP.PCM.DIS ---
<EdilbertoJason - Last Filed: 11/13/17 21:31> Provider - Provider Date of Admission: 11/11/17 14:17 Attending physician: Wesly Rivera DO Time Spent in preparation of Discharge (in minutes): 35 Diagnosis - Discharge Diagnosis (1) Vertigo Status: Acute (2) Hypertension Status: Chronic (3) Diabetes Status: Chronic (4) Dyslipidemia Status: Chronic (5) Hypothyroid Status: Chronic Hospital Course - Lab Results Lab Results: Most Recent Lab Values WBC 8.6 K/uL (4.8-10.8) 11/13/17 08:14 RBC 4.18 Mil/uL (3.80-5.20) 11/13/17 08:14 Hgb 12.9 g/dL (11.0-16.0) 11/13/17 08:14 Hct 38.3 % (34.0-47.0) 11/13/17 08:14 MCV 91.6 fL (81.0-99.0) 11/13/17 08:14 MCH 30.9 pg (27.0-31.0) 11/13/17 08:14 MCHC 33.8 g/dL (33.0-37.0) 11/13/17 08:14 RDW 14.9 % (11.5-14.5) H 11/13/17 08:14 Plt Count 326 K/uL (130-400) 11/13/17 08:14 MPV 8.8 fL (7.2-11.7) 11/13/17 08:14 Neut % (Auto) 42.8 % (50.0-75.0) L 11/13/17 08:14 Lymph % (Auto) 46.8 % (20.0-40.0) H 11/13/17 08:14 Sandoval % (Auto) 7.9 % (0.0-10.0) 11/13/17 08:14 Eos % (Auto) 1.4 % (0.0-4.0) 11/13/17 08:14 Baso % (Auto) 1.1 % (0.0-2.0) 11/13/17 08:14 Neut # (Auto) 3.7 K/uL (1.8-7.0) 11/13/17 08:14 Lymph # (Auto) 4.0 K/uL (1.0-4.3) 11/13/17 08:14 Sandoval # (Auto) 0.7 K/uL (0.0-0.8) 11/13/17 08:14 Eos # (Auto) 0.1 K/uL (0.0-0.7) 11/13/17 08:14 Baso # (Auto) 0.1 K/uL (0.0-0.2) 11/13/17 08:14 PT 11.5 SECONDS (9.7-12.2) 11/11/17 19:01 INR 1.1 11/11/17 19:01 APTT 40 SECONDS (21-34) H 11/11/17 19:01 Sodium 142 mmol/L (132-148) 11/13/17 08:14 Potassium 4.4 mmol/L (3.6-5.2) 11/13/17 08:14 Chloride 110 mmol/L (98-107) H 11/13/17 08:14 Carbon Dioxide 24 mmol/L (22-30) 11/13/17 08:14 Anion Gap 13 (10-20) 11/13/17 08:14 BUN 19 mg/dL (7-17) H 11/13/17 08:14 Creatinine 0.8 mg/dL (0.7-1.2) 11/13/17 08:14 Est GFR ( Amer) > 60 11/13/17 08:14 Est GFR (Non-Af Amer) > 60 11/13/17 08:14 POC Glucose (mg/dL) 112 mg/dL (65-110) H 11/13/17 06:45 Random Glucose 121 mg/dL (65-105) H 11/13/17 08:14 Calcium 9.4 mg/dl (8.6-10.4) 11/13/17 08:14 Phosphorus 3.8 mg/dL (2.5-4.5) 11/12/17 06:58 Magnesium 1.9 mg/dL (1.6-2.3) 11/12/17 06:58 Total Bilirubin 0.3 mg/dL (0.2-1.3) 11/13/17 08:14 AST 26 U/L (14-36) 11/13/17 08:14 ALT 30 U/L (9-52) 11/13/17 08:14 Alkaline Phosphatase 118 U/L (38-126) 11/13/17 08:14 Total Creatine Kinase 88 U/L (30-135) 11/12/17 00:50 CK-MB (Mass) 0.52 ng/mL (0.0-3.38) 11/12/17 00:50 Troponin I < 0.0120 ng/mL (0.00-0.120) 11/12/17 00:50 Total Protein 7.0 g/dL (6.3-8.3) 11/13/17 08:14 Albumin 4.0 g/dL (3.5-5.0) 11/13/17 08:14 Globulin 3.0 gm/dL (2.2-3.9) 11/13/17 08:14 Albumin/Globulin Ratio 1.3 (1.0-2.1) 11/13/17 08:14 TSH 3rd Generation 1.25 mIU/L (0.46-4.68) 11/11/17 12:16 Urine Color Straw (YELLOW) 11/11/17 12:16 Urine Clarity Clear (Clear) 11/11/17 12:16 Urine pH 5.0 (5.0-8.0) 11/11/17 12:16 Ur Specific [place] 1.003 (1.003-1.030) 11/11/17 12:16 Urine Protein Negative mg/dL (NEGATIVE) 11/11/17 12:16 Urine Glucose (UA) 2+ mg/dL (Normal) H 11/11/17 12:16 Urine Ketones Negative mg/dL (NEGATIVE) 11/11/17 12:16 Urine Blood Trace-intact (NEGATIVE) 11/11/17 12:16 Urine Nitrate Negative (NEGATIVE) 11/11/17 12:16 Urine Bilirubin Negative (NEGATIVE) 11/11/17 12:16 Urine Urobilinogen Normal mg/dL (0.2-1.0) 11/11/17 12:16 Ur Leukocyte Esterase Neg Benjamin/uL (Negative) 11/11/17 12:16 Urine WBC (Auto) < 1 /hpf (0-5) 11/11/17 12:16 Urine RBC (Auto) 1 /hpf (0-3) 11/11/17 12:16 Ur Squamous Epith Cells 1 /hpf (0-5) 11/11/17 12:16 Urine Bacteria Rare (<OCC) 11/11/17 12:16 Urine Opiates Screen Negative (NEGATIVE) 11/11/17 15:06 Urine Methadone Screen Negative (NEGATIVE) 11/11/17 15:06 Ur Barbiturates Screen Negative (NEGATIVE) 11/11/17 15:06 Ur Phencyclidine Scrn Negative (NEGATIVE) 11/11/17 15:06 Ur Amphetamines Screen Negative (NEGATIVE) 11/11/17 15:06 U Benzodiazepines Scrn Negative (NEGATIVE) 11/11/17 15:06 U Oth Cocaine Metabols Negative (NEGATIVE) 11/11/17 15:06 U Cannabinoids Screen Negative (NEGATIVE) 11/11/17 15:06 - Hospital Course Hospital Course: On admission:This is a 61 year old female with PMH of questionable TIA in the past, PAD with stents, HTN, HLD, DM2, Hypothyroidism, RA who presents to the ED with a 2 day history of dizziness, described as a constant feeling of the room spinning with blurry vision and nausea. Pt denies any alleviating or exacerbating factors, and states that she woke up yesterday morning (11/10) feeling this way. Pt has not taken anything for the dizziness. Pt is also complaining of a 2 day history of fatigue. There is no history of similar symptoms. Pt denies fever, chills, headache, LOC, fall, chest pain, palpitations, SOB, abdominal pain, v/d, hematochezia, melena, dysuria, cough, sore throat, recent travel, leg pain or swelling. Hospital course: In the ED, pt's Head CT w/o contrast showed right basal ganglia lacunar infarct. New hypodensity 4 mm in the right caudate head suggestive for lacunar infarct, age indeterminate. (see full report). She received ASA 325 mg PO in the ED. She was admitted for ischemic CVA. Dr. Sprague, neurology was consulted. MIGUEL panel x3 was normal. EKG was normal. Echocardiogram (05/2017) shows LVEF 55-60%, diastolic dysfunction. Mild MR. Moderate TR. Mild pulmonary hypertension. Pt was started on her home medications for blood pressure, ISS for glucose control, crestor for hx of dylipidemia, continued on home ASA 81 mg. She was started on meclizine 25 mg PO daily, as the dose she received in the ED seemed to help her dizziness. Head and neck CTA was normal. Brain MRI without contrast (11/12) shows no acute subacute brain infarction appreciated including the right caudate head. Chronic lacune is seen here as well as at the right thalamus. Pt's dizziness steadily decreased over her 2 night stay in the hospital. Pt was seen and examined at bedside. Pt has no complaints at this time. When prompted, pt states that she has a little bit of dizziness when standing up but is much improved. She is able to ambulate around the hospital floor with her cane without assistance or difficulty. Tele monitor shows stable response to activity. Pt denies headache, dizziness, lightheadedness, chills, chest pain, sob, abdominal pain, n/v/d, paresthesias. A 12-point ROS was reviewed and is otherwise unremarkable. Pt is medically stable and safe for discharge home. This is a summary of the hospital course, please see chart for full details. Discharge Exam - Head Exam Head Exam: ATRAUMATIC, NORMAL INSPECTION - Eye Exam Eye Exam: EOMI, Normal appearance, PERRL - ENT Exam ENT Exam: Mucous Membranes Moist - Neck Exam Neck exam: Normal Inspection - Respiratory Exam Respiratory Exam: NORMAL BREATHING PATTERN, UNREMARKABLE. absent: Rales, Rhonchi, Wheezes, Respiratory Distress - Cardiovascular Exam Cardiovascular Exam: REGULAR RHYTHM, +S1, +S2. absent: Clicks, Diastolic murmur, Gallop, Irregular Rhythm, Systolic Murmur - GI/Abdominal Exam GI & Abdominal Exam: Normal Bowel Sounds, Soft. absent: Distended, Firm, Guarding, Tenderness - Extremities Exam Extremities exam: normal inspection, pedal pulses present Additional comments: (-) calf tenderness, (-) pedal edema - Back Exam Back exam: NORMAL INSPECTION - Neurological Exam Neurological exam: Alert, CN II-XII Intact, Oriented x3 Additional comments: 5/5 strength in bilateral upper and lower extremities; dermatomal sensation is normal in bilateral upper and lower extremities - Psychiatric Exam Psychiatric exam: Normal Affect, Normal Mood - Skin Skin Exam: Dry, Normal Color, Warm Discharge Plan - Discharge Medications Prescriptions: RX: Meclizine [Meclizine*] 25 mg PO DAILY 3 Days #3 tab - Follow Up Plan Condition: GOOD Disposition: HOME/ ROUTINE Instructions: Heart Healthy Diet, Quitting Smoking for Older Adults, Smoking: Not Just Harmful to Your Lungs and Heart, Vertigo (a Type of Dizziness) (DC), Meclizine Additional Instructions: Patient is medical stable and safe for discharge home. Patient instructed to continue her home medications: Simvastatin, Cozaar, Metformin, Levothyroxine as previously prescribed. In addition to the above medications, pt should start: Meclizine 25 mg PO once daily for the next three days as needed, Aspirin 81 mg (over the counter) by mouth once daily. Patient was counseled on cessation of smoking, and encouraged to follow up with her PMD ([facility]) for help in doing so. Patient informed that although it does not seem that she suffered a stroke during this hospital admission, she is still high risk for developing cardiovascular disease and cerebrovascular disease. Patient instructed to follow up with her PMD, [facility], in 2 weeks, and to follow up with her [employer], Dr. Johnson, at her regularly scheduled appointment. Instructions explained to the patient, who understands and agrees with the discharge plan. If symptoms worsen, please return to your nearest Emergency Department for evaluation. Referrals: [facility] at [facility] [Outside] <Wesly Rivera - Last Filed: 11/14/17 07:38> Provider - Provider Date of Admission: 11/11/17 14:17 Attending physician: Wesly Rivera, Hospital Course - Lab Results Lab Results: Most Recent Lab Values WBC 8.6 K/uL (4.8-10.8) 11/13/17 08:14 RBC 4.18 Mil/uL (3.80-5.20) 11/13/17 08:14 Hgb 12.9 g/dL (11.0-16.0) 11/13/17 08:14 Hct 38.3 % (34.0-47.0) 11/13/17 08:14 MCV 91.6 fL (81.0-99.0) 11/13/17 08:14 MCH 30.9 pg (27.0-31.0) 11/13/17 08:14 MCHC 33.8 g/dL (33.0-37.0) 11/13/17 08:14 RDW 14.9 % (11.5-14.5) H 11/13/17 08:14 Plt Count 326 K/uL (130-400) 11/13/17 08:14 MPV 8.8 fL (7.2-11.7) 11/13/17 08:14 Neut % (Auto) 42.8 % (50.0-75.0) L 11/13/17 08:14 Lymph % (Auto) 46.8 % (20.0-40.0) H 11/13/17 08:14 Sandoval % (Auto) 7.9 % (0.0-10.0) 11/13/17 08:14 Eos % (Auto) 1.4 % (0.0-4.0) 11/13/17 08:14 Baso % (Auto) 1.1 % (0.0-2.0) 11/13/17 08:14 Neut # (Auto) 3.7 K/uL (1.8-7.0) 11/13/17 08:14 Lymph # (Auto) 4.0 K/uL (1.0-4.3) 11/13/17 08:14 [place] # (Auto) 0.7 K/uL (0.0-0.8) 11/13/17 08:14 Eos # (Auto) 0.1 K/uL (0.0-0.7) 11/13/17 08:14 Baso # (Auto) 0.1 K/uL (0.0-0.2) 11/13/17 08:14 PT 11.5 SECONDS (9.7-12.2) 11/11/17 19:01 INR 1.1 11/11/17 19:01 APTT 40 SECONDS (21-34) H 11/11/17 19:01 Sodium 142 mmol/L (132-148) 11/13/17 08:14 Potassium 4.4 mmol/L (3.6-5.2) 11/13/17 08:14 Chloride 110 mmol/L (98-107) H 11/13/17 08:14 Carbon Dioxide 24 mmol/L (22-30) 11/13/17 08:14 Anion Gap 13 (10-20) 11/13/17 08:14 BUN 19 mg/dL (7-17) H 11/13/17 08:14 Creatinine 0.8 mg/dL (0.7-1.2) 11/13/17 08:14 Est GFR ( Amer) > 60 11/13/17 08:14 Est GFR (Non-Af Amer) > 60 11/13/17 08:14 POC Glucose (mg/dL) 112 mg/dL (65-110) H 11/13/17 06:45 Random Glucose 121 mg/dL (65-105) H 11/13/17 08:14 Calcium 9.4 mg/dl (8.6-10.4) 11/13/17 08:14 Phosphorus 3.8 mg/dL (2.5-4.5) 11/12/17 06:58 Magnesium 1.9 mg/dL (1.6-2.3) 11/12/17 06:58 Total Bilirubin 0.3 mg/dL (0.2-1.3) 11/13/17 08:14 AST 26 U/L (14-36) 11/13/17 08:14 ALT 30 U/L (9-52) 11/13/17 08:14 Alkaline Phosphatase 118 U/L (38-126) 11/13/17 08:14 Total Creatine Kinase 88 U/L (30-135) 11/12/17 00:50 CK-MB (Mass) 0.52 ng/mL (0.0-3.38) 11/12/17 00:50 Troponin I < 0.0120 ng/mL (0.00-0.120) 11/12/17 00:50 Total Protein 7.0 g/dL (6.3-8.3) 11/13/17 08:14 Albumin 4.0 g/dL (3.5-5.0) 11/13/17 08:14 Globulin 3.0 gm/dL (2.2-3.9) 11/13/17 08:14 Albumin/Globulin Ratio 1.3 (1.0-2.1) 11/13/17 08:14 TSH 3rd Generation 1.25 mIU/L (0.46-4.68) 11/11/17 12:16 Urine Color Straw (YELLOW) 11/11/17 12:16 Urine Clarity Clear (Clear) 11/11/17 12:16 Urine pH 5.0 (5.0-8.0) 11/11/17 12:16 Ur Specific [place] 1.003 (1.003-1.030) 11/11/17 12:16 Urine Protein Negative mg/dL (NEGATIVE) 11/11/17 12:16 Urine Glucose (UA) 2+ mg/dL (Normal) H 11/11/17 12:16 Urine Ketones Negative mg/dL (NEGATIVE) 11/11/17 12:16 Urine Blood Trace-intact (NEGATIVE) 11/11/17 12:16 Urine Nitrate Negative (NEGATIVE) 11/11/17 12:16 Urine Bilirubin Negative (NEGATIVE) 11/11/17 12:16 Urine Urobilinogen Normal mg/dL (0.2-1.0) 11/11/17 12:16 Ur Leukocyte Esterase Neg Benjamin/uL (Negative) 11/11/17 12:16 Urine WBC (Auto) < 1 /hpf (0-5) 11/11/17 12:16 Urine RBC (Auto) 1 /hpf (0-3) 11/11/17 12:16 Ur Squamous Epith Cells 1 /hpf (0-5) 11/11/17 12:16 Urine Bacteria Rare (<OCC) 11/11/17 12:16 Urine Opiates Screen Negative (NEGATIVE) 11/11/17 15:06 Urine Methadone Screen Negative (NEGATIVE) 11/11/17 15:06 Ur Barbiturates Screen Negative (NEGATIVE) 11/11/17 15:06 Ur Phencyclidine Scrn Negative (NEGATIVE) 11/11/17 15:06 Ur Amphetamines Screen Negative (NEGATIVE) 11/11/17 15:06 U Benzodiazepines Scrn Negative (NEGATIVE) 11/11/17 15:06 U Oth Cocaine Metabols Negative (NEGATIVE) 11/11/17 15:06 U Cannabinoids Screen Negative (NEGATIVE) 11/11/17 15:06 Attending/Attestation - Attestation I have personally seen and examined this patient.: Yes I have fully participated in the care of the patient.: Yes I have reviewed all pertinent clinical information, including history, physical exam and plan: Yes Notes (Text): 11/14/17 07:36 Medical attending: Patient was seen and examined by me. Agree with the above note by the resident The patient was not in any acute distress when I came and saw her On exam we also had her walk with us into the hallway and she did fine. She did not report chest pain, denied palpitations, denied shortness of breath, denied abdominal pain, denied headache. The dizziness that she had earlier was resolved. We will discharge the patient. We told her about the CT scan and MRI. She does have risk factors including smoking, DM, HTN. We encouraged patient to stop smoking - family present. We explained to the patient and the family member that she does have risk factor for full blown stroke and IL etc and she needs to stop smoking. I hope she will stop smoking Wesly Rivera
[2017-11-14 20:10] VITALS: O2SAT 98
== END 2017-11-13 14:29 | disposition home or self-care (01) | DRG 111 ==
LOC: C.ER 10:20 → C.5S 14:17 → C.9E 14:56 → C.6T 19:10
PROVIDERS: ADMIT Hospitalist; ATTEND Hospitalist
DX: R42 Dizziness and giddiness (principal); E11.51 Type 2 diabetes mellitus with diabetic peripheral angiopathy without gangrene; I27.20 Pulmonary hypertension, unspecified; E03.9 Hypothyroidism, unspecified; F17.210 Nicotine dependence, cigarettes, uncomplicated; I10 Essential (primary) hypertension; M06.9 Rheumatoid arthritis, unspecified; E78.5 Hyperlipidemia, unspecified